=== PATIENT | male | born 1955 | race Caucasian/White ===

== ENCOUNTER 2019-04-22 08:33 | Emergency (ER) | payer OTHER ==
[2019-04-22 08:42] VITALS: RESP 18; TEMP 98.1
--- NOTE | 2019-04-22 08:43 | ED ---
General Adult HPI - General Chief complaint: Psychiatric Symptoms Stated complaint: Mental Health Time Seen by Provider: 04/22/19 08:42 Source: patient, RN notes reviewed Mode of arrival: ambulatory Limitations: no limitations - History of Present Illness Initial comments: 64-year-old male with a past medical history of atrial fibrillation, COPD, hyperlipidemia, hypertension presents to the emergency department for a chief complaint of suicidal thoughts. Patient states that he has had suicidal thoughts for about 3 weeks. States he has a history of depression and has been unemployed. States he stopped taking his antidepressants 3 weeks ago. States that about at that time he moved to [place] from [place] to try to find work but was unsuccessful. States he lost all his belongings because they were in his friend's car who got arrested and his items got confiscated. States that today he was again having suicidal thoughts and attempted to hang himself. States he put a rope around his neck and slid off the edge of the dog house. States his feet did hit the ground but there was some pressure on his neck from the rope. States he has a sore throat at this time from this. Patient has no other complaints at this time including shortness of breath, chest pain, abdominal pain, nausea or vomiting, headache, or visual changes. - Related Data Home Medications Medication Instructions Recorded Confirmed Aspirin EC [Ecotrin Low Dose] 81 mg PO DAILY 04/22/19 04/22/19 Lipitor (Unknown Dose) 1 tab PO DAILY 04/22/19 04/22/19 Lisinopril (Unknown Dose) 1 tab PO DAILY 04/22/19 04/22/19 Psych Meds (Unknown) 1 tab PO DAILY 04/22/19 04/22/19 Allergies Allergy/AdvReac Type Severity Reaction Status Date / Time Penicillins Allergy Anaphylaxis Verified 04/22/19 09:11 Review of Systems ROS Statement: Those systems with pertinent positive or pertinent negative responses have been documented in the HPI. ROS Other: All systems not noted in ROS Statement are negative. Past Medical History Past Medical History: Atrial Fibrillation, COPD, Hyperlipidemia, Hypertension History of Any Multi-Drug Resistant Organisms: None Reported Past Surgical History: Appendectomy, Tonsillectomy Past Psychological History: Depression Smoking Status: Current every day smoker Past Alcohol Use History: None Reported Past Drug Use History: None Reported General Exam Limitations: no limitations General appearance: alert, in no apparent distress Head exam: Present: atraumatic, normocephalic, normal inspection Eye exam: Present: normal appearance, PERRL, EOMI. Absent: scleral icterus, conjunctival injection, periorbital swelling ENT exam: Present: normal exam, normal oropharynx (oropharynx appears normal), mucous membranes moist Neck exam: Present: normal inspection, full ROM. Absent: tenderness, meningismus, lymphadenopathy, other (No ecchymosis present, no carotid bruits) Respiratory exam: Present: normal lung sounds bilaterally. Absent: respiratory distress, wheezes, rales, rhonchi, stridor Cardiovascular Exam: Present: regular rate, normal rhythm, normal heart sounds. Absent: systolic murmur, diastolic murmur, rubs, gallop, clicks GI/Abdominal exam: Present: soft, normal bowel sounds. Absent: distended, tenderness, guarding, rebound, rigid Neurological exam: Present: alert, oriented X3 Psychiatric exam: Present: depressed, flat affect Course Vital Signs 04/22/19 04/22/19 08:38 13:00 Temperature 98.1 F 98.1 F Pulse Rate 99 69 Respiratory 18 18 Rate Blood Pressure 169/93 153/85 O2 Sat by Pulse 98 99 Oximetry EKG Findings - EKG Comments: EKG Findings:: Normal sinus rhythm, ventricular rate 74, PA interval 146, QTC 457, no ST elevation or depression Medical Decision Making - Medical Decision Making 64-year-old male presents to the emergency department for a chief complaint of suicidal thoughts. Patient states he has been depressed because he has been unemployed for 3 weeks and recently moved to [place] to look for work. However this has been unsuccessful. Patient states he has been homeless for the past few days. Patient did state he tried to hang himself today with a rope from a dog house however his feet touched the ground. On exam there are no abrasions or bruising noted to the neck. Exam is unremarkable in general. Vitals are stable. Blood work was obtained which was generally negative however glucose is 268 with 3+ glucose in the urine. Recommended follow-up for fasting glucose. CT soft tissue neck with contrast was obtained due to report of hanging himself which showed no acute posttraumatic changes. Patient was evaluated by EPS. They contacted [facility] to also evaluate a patient. Apparently patient has been going around to multiple hospitals in requesting admission to psychiatric worse. They have a 50 page report explaining this. At this time they recommend discharge home with outpatient treatment. Patient was given bus passes to homeless halfway. Patient will follow-up with primary care and was given referral [facility]. He will return here for any worsening symptoms. - Lab Data Result diagrams: 04/22/19 09:30 04/22/19 09:30 Lab Results 04/22/19 04/22/19 04/22/19 Range/Units 09:30 09:30 09:30 WBC 5.8 (3.8-10.6) k/uL RBC 4.50 (4.30-5.90) m/uL Hgb 14.1 (13.0-17.5) gm/dL Hct 41.2 (39.0-53.0) % MCV 91.6 (80.0-100.0) fL MCH 31.3 (25.0-35.0) pg MCHC 34.2 (31.0-37.0) g/dL RDW 16.0 H (11.5-15.5) % Plt Count 242 (150-450) k/uL Neutrophils % 57 % Lymphocytes % 29 % Monocytes % 7 % Eosinophils % 5 % Basophils % 1 % Neutrophils # 3.3 (1.3-7.7) k/uL Lymphocytes # 1.7 (1.0-4.8) k/uL Monocytes # 0.4 (0-1.0) k/uL Eosinophils # 0.3 (0-0.7) k/uL Basophils # 0.1 (0-0.2) k/uL Poikilocytosis Slight Anisocytosis Slight Sodium 140 (137-145) mmol/L Potassium 4.5 (3.5-5.1) mmol/L Chloride 105 (98-107) mmol/L Carbon Dioxide 24 (22-30) mmol/L Anion Gap 11 mmol/L BUN 11 (9-20) mg/dL Creatinine 0.97 (0.66-1.25) mg/dL Est GFR (CKD-EPI)AfAm >90 (>60 ml/min/1.73 sqM) Est GFR (CKD-EPI)NonAf 82 (>60 ml/min/1.73 sqM) Glucose 268 H (74-99) mg/dL Calcium 9.5 (8.4-10.2) mg/dL Total Bilirubin 0.4 (0.2-1.3) mg/dL AST 34 (17-59) U/L ALT 61 (21-72) U/L Alkaline Phosphatase 87 (38-126) U/L Total Protein 7.7 (6.3-8.2) g/dL Albumin 4.5 (3.5-5.0) g/dL Urine Color Yellow Urine Appearance Clear (Clear) Urine pH 5.5 (5.0-8.0) Ur Specific [place] 1.014 (1.001-1.035) Urine Protein Negative (Negative) Urine Glucose (UA) 3+ H (Negative) Urine Ketones Negative (Negative) Urine Blood Negative (Negative) Urine Nitrite Negative (Negative) Urine Bilirubin Negative (Negative) Urine Urobilinogen <2.0 (<2.0) mg/dL Ur Leukocyte Esterase Negative (Negative) Urine Opiates Screen Not Detected (NotDetected) Ur Oxycodone Screen Not Detected (NotDetected) Urine Methadone Screen Not Detected (NotDetected) Ur Propoxyphene Screen Not Detected (NotDetected) Ur Barbiturates Screen Not Detected (NotDetected) U Tricyclic Antidepress Not Detected (NotDetected) Ur Phencyclidine Scrn Not Detected (NotDetected) Ur Amphetamines Screen Not Detected (NotDetected) U Methamphetamines Scrn Not Detected (NotDetected) U Benzodiazepines Scrn Not Detected (NotDetected) Urine Cocaine Screen Not Detected (NotDetected) U Marijuana (THC) Screen Not Detected (NotDetected) Disposition Clinical Impression: Adjustment reaction, Hyperglycemia Disposition: HOME SELF-CARE Condition: Good Instructions (If sedation given, give patient instructions): Stress (ED), Depression (ED) Additional Instructions: Please follow up with primary care in 1-2 days to discuss high blood sugar. Please follow-up with primary care as well for depression. Return to the emergency department if you have any worsening symptoms. Is patient prescribed a controlled substance at d/c from ED?: No Referrals: Cole Cade MD [REFERRING] - 1[facility] days [facility] - 1-2 days Time of Disposition: 16:01
[2019-04-22] MEDS ORDERED: SODIUM CHLORIDE 0.9% 500 ML 500 ML IV STA (09:07)
[2019-04-22 09:48] LABS: Appearance,Urine Clear (Clear); Bilirubin,Urine Negative (Negative); Blood,Urine Negative (Negative); Color,Urine Yellow; Glucose,Urine (UA) 3+ (Negative); Ketones,Urine Negative (Negative); Leukocyte Esterase,Urine Negative (Negative); Nitrite,Urine Negative (Negative); PH, Urine 5.5 (5.0-8.0); Protein,Urine Negative (Negative); Specific Gravity,Urine 1.014 (1.001-1.035); Urobilinogen,Urine <2.0 mg/dL (<2.0)
[2019-04-22 09:52] LABS: Anisocytosis Slight; Basophils # (A) 0.1 k/uL (0-0.2); Basophils % (A) 1 %; Eosinophils # (A) 0.3 k/uL (0-0.7); Eosinophils % (A) 5 %; HCT 41.2 % (39.0-53.0); HGB 14.1 gm/dL (13.0-17.5); Lymphocytes # (A) 1.7 k/uL (1.0-4.8); Lymphocytes % (A) 29 %; MCH 31.3 pg (25.0-35.0); MCHC 34.2 g/dL (31.0-37.0); MCV 91.6 fL (80.0-100.0); Mean Platelet Volume 7.8; Monocytes # (A) 0.4 k/uL (0-1.0); Monocytes % (A) 7 %; Neutrophils # (A) 3.3 k/uL (1.3-7.7); Neutrophils % (A) 57 %; Platelet Count 242 k/uL (150-450); Poikilocytosis Slight; WBC 5.8 k/uL (3.8-10.6)
[2019-04-22 09:57] LABS: ALT 61 U/L (21-72); AST 34 U/L (17-59); African American GFR (CKD) >90 (>60 ml/min/1.73 sqM); Albumin 4.5 g/dL (3.5-5.0); Alkaline Phosphatase 87 U/L (38-126); Anion Gap 11 mmol/L; Blood Urea Nitrogen 11 mg/dL (9-20); Calcium 9.5 mg/dL (8.4-10.2); Carbon Dioxide 24 mmol/L (22-30); Chloride 105 mmol/L (98-107); Glucose 268 mg/dL (74-99); Potassium 4.5 mmol/L (3.5-5.1); Sodium 140 mmol/L (137-145); Total Bilirubin 0.4 mg/dL (0.2-1.3); Total Protein 7.7 g/dL (6.3-8.2)
[2019-04-22 10:18] LABS: Amphetamine Screen,Urine Not Detected (NotDetected); Barbiturate Screen,Urine Not Detected (NotDetected); Benzodiazepines Screen,Urine Not Detected (NotDetected); Cocaine Screen,Urine Not Detected (NotDetected); Methadone Screen, Urine Not Detected (NotDetected); Opiate Screen,Urine Not Detected (NotDetected); Oxycodone Screen, Urine Not Detected (NotDetected); Phencyclidine Screen,Urine Not Detected (NotDetected); Tricyclic Antidepressant,Urine Not Detected (NotDetected); Urn Cannabinoid Scrn Not Detected (NotDetected)
--- NOTE | 2019-04-22 10:38 | CT ---
EXAMINATION TYPE: CT soft tissue neck w con DATE OF EXAM: 04/22/2019 COMPARISON: None HISTORY: Neck pain CT DLP: 327.3 mGycm CONTRAST: Patient injected with 100 mL of Isovue 300. TECHNIQUE: Axial images at 3 mm thick sections. Reconstructed images in the coronal plane and sagitt al plane are reviewed. FINDINGS: Limited CT sections are obtained the lung apices. The lung apices appear clear. There is m ucosal thickening within the left sphenoid sinus. CT neck: The torus tubarius and fossa of Rosenmuller are normal. [employer]orer spaces are normal. Para nasal sinuses and mastoid air cells are clear. Parotid glands appear normal and symmetrical. Submandibular glands, are normal. Parapharyngeal spac es are normal. No suspicious adenopathy is evident. Small shoddy lymph nodes are within the bilatera l neck. The hypopharynx appears within normal limits. Vocal cord level appear symmetrical. Thyroid as visualized is normal. Hyoid bone is intact. Hypopharynx and subglottic airway appear normal. Carotid arteries appear normal . Vertebral arteries are unremarkable. No acute osseous abnormality is evident. There are some uncovertebral joint hypertrophy in the lower cervical spine contributing to foraminal narrowing. IMPRESSIONS: 1. No acute posttraumatic changes. 2. Few small scattered bilateral shotty lymph nodes. Enlarged suspicious adenopathy is not evident.
[2019-04-22 16:09] VITALS: BP 151/80; PULSE 68
== END 2019-04-22 16:16 | disposition home or self-care (01) ==
LOC: EC 08:33
DX: F43.21 Adjustment disorder with depressed mood (principal); R73.9 Hyperglycemia, unspecified; R45.851 Suicidal ideations; Z56.0 Unemployment, unspecified; Z59.0 Homelessness; E78.5 Hyperlipidemia, unspecified; I10 Essential (primary) hypertension; F17.200 Nicotine dependence, unspecified, uncomplicated; Z88.0 Allergy status to penicillin; Z79.82 Long term (current) use of aspirin; Z79.899 Other long term (current) drug therapy
CPT/HCPCS: 82075; 36415; 93005; 80053; 85025; 81003; 80306; 70491; 99285; 96360; Q9967

== ENCOUNTER 2019-05-09 21:03 | Inpatient (IN) | payer OTHER ==
[2019-05-09] MEDS ORDERED: SODIUM CHLORIDE 0.9% 1,000 ML IV STA (21:53)
--- NOTE | 2019-05-09 22:02 | ED ---
General Adult HPI - General Chief complaint: Psychiatric Symptoms Stated complaint: Mental Health Time Seen by Provider: 05/09/19 21:39 Source: patient Mode of arrival: ambulatory Limitations: no limitations - History of Present Illness Initial comments: Patient is 64-year-old male with history of suicidal ideations presenting to the emergency department with a chief complaint of a suicide attempt. Patient reports he was at the [facility] when he took a bottle of metformin. Patient reports there was approximately 30 tablets. Patient reports he developed nausea and vomited approximately 30 minutes after the incident. Patient reports he also drank about 4 cans of beer. Patient reports he got scared as he was walking and he had a light pole. Patient is also complaining of right-sided pain. Patient reports he became more concerned and called a taxi to bring him to the ED. Currently patient reports a right-sided headache near the contusion site. Patient also reports diaphoresis but denies any abdominal pain. - Related Data Home Medications Medication Instructions Recorded Confirmed No Known Home Medications 05/09/19 05/09/19 Allergies Allergy/AdvReac Type Severity Reaction Status Date / Time Penicillins Allergy Anaphylaxis Verified 05/09/19 22:21 Review of Systems ROS Statement: Those systems with pertinent positive or pertinent negative responses have been documented in the HPI. ROS Other: All systems not noted in ROS Statement are negative. Past Medical History Past Medical History: Atrial Fibrillation, COPD, Hyperlipidemia, Hypertension History of Any Multi-Drug Resistant Organisms: None Reported Past Surgical History: Appendectomy, Tonsillectomy Past Psychological History: Depression Smoking Status: Current every day smoker Past Alcohol Use History: None Reported Past Drug Use History: None Reported General Exam Limitations: no limitations General appearance: alert, in no apparent distress Head exam: Present: atraumatic, normocephalic, normal inspection Eye exam: Present: normal appearance, PERRL, EOMI Pupils: Present: normal accommodation, other (Pupils equal) ENT exam: Present: normal exam, mucous membranes moist, normal external ear exam Neck exam: Present: normal inspection, full ROM Respiratory exam: Present: normal lung sounds bilaterally Cardiovascular Exam: Present: normal rhythm, tachycardia, normal heart sounds GI/Abdominal exam: Present: soft. Absent: tenderness Extremities exam: Present: normal inspection, full ROM Back exam: Present: normal inspection, full ROM Neurological exam: Present: alert, oriented X3 Psychiatric exam: Present: normal affect, depressed, anxious, suicidal ideation Skin exam: Present: warm, intact, normal color Course Vital Signs 05/09/19 05/09/19 05/09/19 21:29 22:13 23:06 Temperature 97.9 F Pulse Rate 118 H 97 88 Respiratory 20 18 18 Rate Blood Pressure 136/82 138/90 153/83 O2 Sat by Pulse 97 98 96 Oximetry 05/10/19 00:31 Temperature 98.3 F Pulse Rate 89 Respiratory 18 Rate Blood Pressure 116/74 O2 Sat by Pulse 96 Oximetry EKG Findings - EKG Comments: EKG Findings:: Normal sinus rhythm. Matriculate rate 96, MA interval 156, QRS duration 94, QT/QTC 360/454, p-r-t axes 42 17 -4 Medical Decision Making - Medical Decision Making Patient is 64-year-old male presenting to emergency Department with a chief complaint of suicidal attempt. Patient reports he took a bottle of metformin. Patient reports there was approximately 30 pills in the bottle. Patient states that he vomited after the incident and also tripped and hit a lamp post with his head. Physical examination his pupils are round reactive and equal. CBC, CMP, salicylates, acetaminophen, lactic and coags were obtained immediately. Patient was given a liter of fluid. Initial concern is for metformin induced lactic acidosis. Lactic results indicate 2.1. CT of the brain and C-spine is negative for acute fractures, dislocations, hemorrhage or midline shift. Repeat lactate is 1.4. Patient is cleared medically and will be assessed by EPS. Patient will be admitted for further medical evaluation. - Lab Data Result diagrams: 05/09/19 18:10 05/09/19 18:10 Lab Results 05/09/19 05/09/19 05/09/19 Range/Units 18:10 18:10 18:10 WBC 13.4 H (3.8-10.6) k/uL RBC 4.82 (4.30-5.90) m/uL Hgb 15.1 (13.0-17.5) gm/dL Hct 42.7 (39.0-53.0) % MCV 88.6 (80.0-100.0) fL MCH 31.2 (25.0-35.0) pg MCHC 35.3 (31.0-37.0) g/dL RDW 15.7 H (11.5-15.5) % Plt Count 203 (150-450) k/uL Neutrophils % 73 % Lymphocytes % 17 % Monocytes % 5 % Eosinophils % 2 % Basophils % 1 % Neutrophils # 9.8 H (1.3-7.7) k/uL Lymphocytes # 2.3 (1.0-4.8) k/uL Monocytes # 0.7 (0-1.0) k/uL Eosinophils # 0.3 (0-0.7) k/uL Basophils # 0.1 (0-0.2) k/uL PT (9.0-12.0) sec INR (<1.2) APTT (22.0-30.0) sec Sodium 141 (137-145) mmol/L Potassium 4.7 (3.5-5.1) mmol/L Chloride 104 (98-107) mmol/L Carbon Dioxide 23 (22-30) mmol/L Anion Gap 14 mmol/L BUN 14 (9-20) mg/dL Creatinine 0.89 (0.66-1.25) mg/dL Est GFR (CKD-EPI)AfAm >90 (>60 ml/min/1.73 sqM) Est GFR (CKD-EPI)NonAf >90 (>60 ml/min/1.73 sqM) Glucose 126 H (74-99) mg/dL POC Glucose (mg/dL) (75-99) mg/dL POC Glu Sales Clerk Food ID Lactic Ac Sepsis Rflx Plasma Lactic Acid [place] 2.1 H* (0.7-2.0) mmol/L Calcium 9.9 (8.4-10.2) mg/dL Phosphorus 4.9 H (2.5-4.5) mg/dL Magnesium 2.0 (1.6-2.3) mg/dL Total Bilirubin 0.4 (0.2-1.3) mg/dL AST 33 (17-59) U/L ALT 68 (21-72) U/L Alkaline Phosphatase 87 (38-126) U/L Total Protein 8.2 (6.3-8.2) g/dL Albumin 4.9 (3.5-5.0) g/dL Urine Color Urine Appearance (Clear) Urine pH (5.0-8.0) Ur Specific [place] (1.001-1.035) Urine Protein (Negative) Urine Glucose (UA) (Negative) Urine Ketones (Negative) Urine Blood (Negative) Urine Nitrite (Negative) Urine Bilirubin (Negative) Urine Urobilinogen (<2.0) mg/dL Ur Leukocyte Esterase (Negative) Salicylates <1.0 mg/dL Urine Opiates Screen (NotDetected) Ur Oxycodone Screen (NotDetected) Urine Methadone Screen (NotDetected) Ur Propoxyphene Screen (NotDetected) Acetaminophen <10.0 ug/mL Ur Barbiturates Screen (NotDetected) U Tricyclic Antidepress (NotDetected) Ur Phencyclidine Scrn (NotDetected) Ur Amphetamines Screen (NotDetected) U Methamphetamines Scrn (NotDetected) U Benzodiazepines Scrn (NotDetected) Urine Cocaine Screen (NotDetected) U Marijuana (THC) Screen (NotDetected) Serum Alcohol 63 mg/dL 05/09/19 05/09/19 05/09/19 Range/Units 18:10 18:10 22:42 WBC (3.8-10.6) k/uL RBC (4.30-5.90) m/uL Hgb (13.0-17.5) gm/dL Hct (39.0-53.0) % MCV (80.0-100.0) fL MCH (25.0-35.0) pg MCHC (31.0-37.0) g/dL RDW (11.5-15.5) % Plt Count (150-450) k/uL Neutrophils % % Lymphocytes % % Monocytes % % Eosinophils % % Basophils % % Neutrophils # (1.3-7.7) k/uL Lymphocytes # (1.0-4.8) k/uL Monocytes # (0-1.0) k/uL Eosinophils # (0-0.7) k/uL Basophils # (0-0.2) k/uL PT 10.2 (9.0-12.0) sec INR 0.9 (<1.2) APTT 27.2 (22.0-30.0) sec Sodium (137-145) mmol/L Potassium (3.5-5.1) mmol/L Chloride (98-107) mmol/L Carbon Dioxide (22-30) mmol/L Anion Gap mmol/L BUN (9-20) mg/dL Creatinine (0.66-1.25) mg/dL Est GFR (CKD-EPI)AfAm (>60 ml/min/1.73 sqM) Est GFR (CKD-EPI)NonAf (>60 ml/min/1.73 sqM) Glucose (74-99) mg/dL POC Glucose (mg/dL) (75-99) mg/dL POC Glu Sales Clerk Food ID Lactic Ac Sepsis Rflx Y Plasma Lactic Acid [place] (0.7-2.0) mmol/L Calcium (8.4-10.2) mg/dL Phosphorus (2.5-4.5) mg/dL Magnesium (1.6-2.3) mg/dL Total Bilirubin (0.2-1.3) mg/dL AST (17-59) U/L ALT (21-72) U/L Alkaline Phosphatase (38-126) U/L Total Protein (6.3-8.2) g/dL Albumin (3.5-5.0) g/dL Urine Color Colorless Urine Appearance Clear (Clear) Urine pH 5.0 (5.0-8.0) Ur Specific [place] 1.003 (1.001-1.035) Urine Protein Negative (Negative) Urine Glucose (UA) Negative (Negative) Urine Ketones Negative (Negative) Urine Blood Negative (Negative) Urine Nitrite Negative (Negative) Urine Bilirubin Negative (Negative) Urine Urobilinogen <2.0 (<2.0) mg/dL Ur Leukocyte Esterase Negative (Negative) Salicylates mg/dL Urine Opiates Screen Not Detected (NotDetected) Ur Oxycodone Screen Not Detected (NotDetected) Urine Methadone Screen Not Detected (NotDetected) Ur Propoxyphene Screen Not Detected (NotDetected) Acetaminophen ug/mL Ur Barbiturates Screen Not Detected (NotDetected) U Tricyclic Antidepress Not Detected (NotDetected) Ur Phencyclidine Scrn Not Detected (NotDetected) Ur Amphetamines Screen Not Detected (NotDetected) U Methamphetamines Scrn Not Detected (NotDetected) U Benzodiazepines Scrn Not Detected (NotDetected) Urine Cocaine Screen Not Detected (NotDetected) U Marijuana (THC) Screen Not Detected (NotDetected) Serum Alcohol mg/dL 05/09/19 05/10/1919 Range/Units 23:05 00:27 02:03 WBC (3.8-10.6) k/uL RBC (4.30-5.90) m/uL Hgb (13.0-17.5) gm/dL Hct (39.0-53.0) % MCV (80.0-100.0) fL MCH (25.0-35.0) pg MCHC (31.0-37.0) g/dL RDW (11.5-15.5) % Plt Count (150-450) k/uL Neutrophils % % Lymphocytes % % Monocytes % % Eosinophils % % Basophils % % Neutrophils # (1.3-7.7) k/uL Lymphocytes # (1.0-4.8) k/uL Monocytes # (0-1.0) k/uL Eosinophils # (0-0.7) k/uL Basophils # (0-0.2) k/uL PT (9.0-12.0) sec INR (<1.2) APTT (22.0-30.0) sec Sodium (137-145) mmol/L Potassium (3.5-5.1) mmol/L Chloride (98-107) mmol/L Carbon Dioxide (22-30) mmol/L Anion Gap mmol/L BUN (9-20) mg/dL Creatinine (0.66-1.25) mg/dL Est GFR (CKD-EPI)AfAm (>60 ml/min/1.73 sqM) Est GFR (CKD-EPI)NonAf (>60 ml/min/1.73 sqM) Glucose (74-99) mg/dL POC Glucose (mg/dL) 148 H 150 H (75-99) mg/dL POC Glu Sales Clerk Food ID Syeda Hadley Lactic Ac Sepsis Rflx Plasma Lactic Acid [place] 1.4 (0.7-2.0) mmol/L Calcium (8.4-10.2) mg/dL Phosphorus (2.5-4.5) mg/dL Magnesium (1.6-2.3) mg/dL Total Bilirubin (0.2-1.3) mg/dL AST (17-59) U/L ALT (21-72) U/L Alkaline Phosphatase (38-126) U/L Total Protein (6.3-8.2) g/dL Albumin (3.5-5.0) g/dL Urine Color Urine Appearance (Clear) Urine pH (5.0-8.0) Ur Specific [place] (1.001-1.035) Urine Protein (Negative) Urine Glucose (UA) (Negative) Urine Ketones (Negative) Urine Blood (Negative) Urine Nitrite (Negative) Urine Bilirubin (Negative) Urine Urobilinogen (<2.0) mg/dL Ur Leukocyte Esterase (Negative) Salicylates mg/dL Urine Opiates Screen (NotDetected) Ur Oxycodone Screen (NotDetected) Urine Methadone Screen (NotDetected) Ur Propoxyphene Screen (NotDetected) Acetaminophen ug/mL Ur Barbiturates Screen (NotDetected) U Tricyclic Antidepress (NotDetected) Ur Phencyclidine Scrn (NotDetected) Ur Amphetamines Screen (NotDetected) U Methamphetamines Scrn (NotDetected) U Benzodiazepines Scrn (NotDetected) Urine Cocaine Screen (NotDetected) U Marijuana (THC) Screen (NotDetected) Serum Alcohol mg/dL Disposition Clinical Impression: Depression, Suicidal ideation Disposition: ADMITTED IP TO THIS HOSP Condition: Stable Instructions (If sedation given, give patient instructions): Depression (DC) Additional Instructions: Patient will be admitted Is patient prescribed a controlled substance at d/c from ED?: No Referrals: None,Stated [Primary Care Provider] - 1-2 days Time of Disposition: 02:38
[2019-05-09 22:24] LABS: Appearance,Urine Clear (Clear); Basophils # (A) 0.1 k/uL (0-0.2); Basophils % (A) 1 %; Bilirubin,Urine Negative (Negative); Blood,Urine Negative (Negative); Color,Urine Colorless; Eosinophils # (A) 0.3 k/uL (0-0.7); Eosinophils % (A) 2 %; Glucose,Urine (UA) Negative (Negative); HCT 42.7 % (39.0-53.0); HGB 15.1 gm/dL (13.0-17.5); Ketones,Urine Negative (Negative); Leukocyte Esterase,Urine Negative (Negative); Lymphocytes # (A) 2.3 k/uL (1.0-4.8); Lymphocytes % (A) 17 %; MCH 31.2 pg (25.0-35.0); MCHC 35.3 g/dL (31.0-37.0); MCV 88.6 fL (80.0-100.0); Mean Platelet Volume 7.5; Monocytes # (A) 0.7 k/uL (0-1.0); Monocytes % (A) 5 %; Neutrophils # (A) 9.8 k/uL (1.3-7.7); Neutrophils % (A) 73 %; Nitrite,Urine Negative (Negative); Platelet Count 203 k/uL (150-450); Protein,Urine Negative (Negative); RBC 4.82 m/uL (4.30-5.90); RDW 15.7 % (11.5-15.5); Specific Gravity,Urine 1.003 (1.001-1.035); Urobilinogen,Urine <2.0 mg/dL (<2.0); WBC 13.4 k/uL (3.8-10.6)
[2019-05-09 22:32] LABS: ALT 68 U/L (21-72); AST 33 U/L (17-59); Acetaminophen <10.0 ug/mL; African American GFR (CKD) >90 (>60 ml/min/1.73 sqM); Albumin 4.9 g/dL (3.5-5.0); Alcohol 63 mg/dL; Alkaline Phosphatase 87 U/L (38-126); Anion Gap 14 mmol/L; Blood Urea Nitrogen 14 mg/dL (9-20); Calcium 9.9 mg/dL (8.4-10.2); Carbon Dioxide 23 mmol/L (22-30); Chloride 104 mmol/L (98-107); Glucose 126 mg/dL (74-99); Phosphorus 4.9 mg/dL (2.5-4.5); Potassium 4.7 mmol/L (3.5-5.1); Salicylate <1.0 mg/dL; Sodium 141 mmol/L (137-145); Total Bilirubin 0.4 mg/dL (0.2-1.3); Total Protein 8.2 g/dL (6.3-8.2)
[2019-05-09 22:33] LABS: Amphetamine Screen,Urine Not Detected (NotDetected); Barbiturate Screen,Urine Not Detected (NotDetected); Benzodiazepines Screen,Urine Not Detected (NotDetected); Cocaine Screen,Urine Not Detected (NotDetected); Methadone Screen, Urine Not Detected (NotDetected); Opiate Screen,Urine Not Detected (NotDetected); Oxycodone Screen, Urine Not Detected (NotDetected); Phencyclidine Screen,Urine Not Detected (NotDetected); Tricyclic Antidepressant,Urine Not Detected (NotDetected); Urn Cannabinoid Scrn Not Detected (NotDetected)
[2019-05-09 22:34] LABS: INR 0.9 (<1.2); Partial Thromboplastin Time 27.2 sec (22.0-30.0); Prothrombin Time 10.2 sec (9.0-12.0)
[2019-05-09 23:15] LABS: Glucose,Whole Blood 148 mg/dL (75-99)
--- NOTE | 2019-05-09 23:21 | CT ---
EXAM: CT Head Without Intravenous Contrast CLINICAL HISTORY: trauma to head TECHNIQUE: Axial computed tomography images of the head/brain without intravenous contrast. CTDI is 0.085, 0.085, 45.2, 16.4 mGy and DLP is 1484.3 mGy-cm. This CT exam was performed using one or more of the following dose reduction techniques: automated exposure control, adjustment of the mA and/or kV according to patient size, and/or use of iterative reconstruction technique. COMPARISON: No relevant prior studies available. FINDINGS: Brain: No acute intracranial hemorrhage, large hypodensity, or significant mass effect. Nonspecific areas of hypoattenuation in the periventricular white matter likely represent the sequela of chronic small vessel ischemic disease. Ventricles: Unremarkable. No ventriculomegaly. Bones/joints: Unremarkable. No acute fracture. Soft tissues: Unremarkable. Sinuses: Unremarkable. Mastoid air cells: Unremarkable. IMPRESSION: No acute intracranial hemorrhage or calvarial fracture. EXAM: CT Cervical Spine Without Intravenous Contrast CLINICAL HISTORY: trauma to head TECHNIQUE: Axial computed tomography images of the cervical spine without intravenous contrast. CTDI is 0.085, 0.085, 45.2, 16.4 mGy and DLP is 1484.3 mGy-cm. This CT exam was performed using one or more of the following dose reduction techniques: automated exposure control, adjustment of the mA and/or kV according to patient size, and/or use of iterative reconstruction technique. COMPARISON: No relevant prior studies available. FINDINGS: Vertebrae: No acute fracture or malalignment. Straightening of the normal cervical lordosis. Discs/spinal canal/neural foramina: Degenerative changes. No significant osseous spinal stenosis. Soft tissues: Unremarkable. Lung apices: Right pleural calcification. IMPRESSION: No acute fracture or malalignment.
[2019-05-10 00:29] LABS: Glucose,Whole Blood 150 mg/dL (75-99)
[2019-05-10 04:01] LABS: Glucose,Whole Blood 199 mg/dL (75-99)
[2019-05-10] MEDS ORDERED: NAPROXEN 250 MG TAB PO STA (13:36)
[2019-05-10 15:10] LABS: Glucose,Whole Blood 205 mg/dL (75-99)
[2019-05-10 18:24] VITALS: BMI 28.8
[2019-05-10] MEDS ORDERED: ZIPRASIDONE 20 MG VIAL IM PRN (19:24)
[2019-05-10] MEDS ORDERED: MAGNESIUM HYDROXIDE 2,400 MG/10 ML CUP PO PRN (19:24)
[2019-05-10] MEDS ORDERED: MAG HYDROX/AL HYDROX/SIMETH 30 ML CUP PO PRN (19:24)
[2019-05-10] MEDS ORDERED: LORazepam 2 MG/ML INJ IM PRN (19:26)
[2019-05-10] MEDS: ACETAMINOPHEN TAB 325 MG TAB PO PRN (20:16)
[2019-05-10 20:22] LABS: Glucose,Whole Blood 164 mg/dL (75-99)
[2019-05-10 20:54] LABS: VBG PH 7.32 (7.31-7.41)
[2019-05-10 21:01] LABS: Calcium 9.7 mg/dL (8.4-10.2); Potassium 4.8 mmol/L (3.5-5.1)
--- NOTE | 2019-05-10 21:41 | P.HPIM ---
History of Present Illness H&P Date: 05/10/19 The patient is a 64 yo M with a PMH of atrial fibrillation, HTN, HLD, and DM presented to the ED after a suicide attempt. Patient notes that he has been feeling poorly about his life and tried to commit suicide yesterday by ingesting a bottle full of metformin (~ 30 pills). The patient notes that he developed abdominal pain and nausea and had an episode of vomiting in which he visualized "most of the pills" that he had ingested. He then stumbled and hit a pole, hitting his head. He denied losing consciousness. He was then brought in to the ED. Patient was seen in the MHU. At time of the interview, he endorsed a mild occasional epigastric discomfort along with some nausea along with occasional blurred vision since yesterday, lasting a few seconds to minutes at a time, and then resolving spontaneously. He denied any additional complaints. Denied chest pain, fever, chills, cough, vomiting, diarrhea, headaches, or dizziness. He underwent an extensive evaluation in the ED w/ head/C-spine CT unremarkable and EKG showing normal sinus rhythm at 96 bpm. Laboratory evaluation revealed lactic acid 2.1, BUN 14, Cr 0.89, WBC count 13.4, Hgb 15.1, and platelets 203. Urine toxicology was negative and salicylate level was undetected. Review of Systems Pertinent positives and negatives as discussed in HPI, a complete review of systems was performed and all other systems are negative. Past Medical History Past Medical History: Atrial Fibrillation, COPD, Hyperlipidemia, Hypertension History of Any Multi-Drug Resistant Organisms: None Reported Past Surgical History: Appendectomy, Tonsillectomy Past Psychological History: Depression Smoking Status: Current every day smoker Past Alcohol Use History: None Reported Past Drug Use History: None Reported Medications and Allergies Home Medications Medication Instructions Recorded Confirmed Type No Known Home Medications 05/09/19 05/09/19 History Allergies Allergy/AdvReac Type Severity Reaction Status Date / Time Penicillins Allergy Anaphylaxis Verified 05/09/19 22:21 Physical Exam Vitals: Vital Signs Temp Pulse Pulse Resp BP BP Pulse Ox 05/10/19 18:21 97.5 F L 86 18 144/79 05/10/19 18:08 97.5 F L 86 18 144/79 94 L 05/10/19 13:19 75 16 145/88 97 05/10/19 03:01 107 H 18 127/67 95 05/10/19 00:31 98.3 F 89 18 116/74 96 05/09/19 23:06 88 18 153/83 96 05/09/19 22:13 97 18 138/90 98 05/09/19 21:29 97.9 F 118 H 20 136/82 97 Intake and Output 05/10/19 05/10/19 05/10/19 06:59 14:59 22:59 Other: Weight 88.5 kg General: non toxic, no distress, appears at stated age, normal weight Derm: no unusual rashes/lesions no unusual ecchymoses, warm, dry Head: atraumatic, normocephalic, symmetric Eyes: EOMI, no lid lag, anicteric sclera, pupils equal round reactive to light ENT: Nose and ears atraumatic, no thrush, no pharyngeal erythema Neck: No thyromegaly, no cervical lymphadenopathy, trachea midline, supple Mouth: no lip lesion, mucus membranes moist Cardiovascular: S1S2 reg, no murmur, positive posterior tibial pulse bilateral, no edema, capillary refill less than 2 seconds Lungs: CTA bilateral, no rhonchi, no rales , no accessory muscle use Abdominal: soft, nontender to palpation, no guarding, no appreciable organomegaly, normal bowel sounds Ext: no gross muscle atrophy, muscle strength 5 out of 5 in all 4 extremities grossly, no contractures, Neuro: CN II-XI grossly intact, light touch intact all 4 extremities, finger to nose within normal limits, Psych: Alert, oriented, appropriate affect Results CBC & Chem 7: 05/09/19 18:10 05/10/19 20:40 Labs: Abnormal Lab Results - Last 24 Hours (Table) 05/09/19 05/09/19 05/09/19 Range/Units 18:10 18:10 18:10 WBC 13.4 H (3.8-10.6) k/uL RDW 15.7 H (11.5-15.5) % Neutrophils # 9.8 H (1.3-7.7) k/uL Glucose 126 H (74-99) mg/dL POC Glucose (mg/dL) (75-99) mg/dL Plasma Lactic Acid Seymour 2.1 H* (0.7-2.0) mmol/L Phosphorus 4.9 H (2.5-4.5) mg/dL 05/09/19 05/10/19 05/10/19 Range/Units 23:05 00:27 03:58 WBC (3.8-10.6) k/uL RDW (11.5-15.5) % Neutrophils # (1.3-7.7) k/uL Glucose (74-99) mg/dL POC Glucose (mg/dL) 148 H 150 H 199 H (75-99) mg/dL Plasma Lactic Acid Seymour (0.7-2.0) mmol/L Phosphorus (2.5-4.5) mg/dL 05/10/19 05/10/19 Range/Units 15:07 20:21 WBC (3.8-10.6) k/uL RDW (11.5-15.5) % Neutrophils # (1.3-7.7) k/uL Glucose (74-99) mg/dL POC Glucose (mg/dL) 205 H 164 H (75-99) mg/dL Plasma Lactic Acid Seymour (0.7-2.0) mmol/L Phosphorus (2.5-4.5) mg/dL Assessment and Plan Plan: Suicidal ideation -As per psychiatry Metformin overdose -Lactate wnl -Creatinine slightly increased from prior -Will continue to monitor BMP daily for now -Continue to check FS ACHS and will add Insulin sliding scale for now -F/u A1C Occasional Blurred vision -Unclear as to etiology -Monitor for now Chronic conditions:Afib, HTN, HLD -Patient doesn't recall the names of any of his medications and states that he wasn't taking them. Will confirm with his pharmacy and resume as warranted. Thank you for allowing us to participate in the care of this patient. We will follow peripherally. Do not hesitate to contact us with questions. Someone can be reached from the [facility] hospitalist group at all hours of the day at [phone].
[2019-05-11] MEDS: amLODIPine 10 MG TAB PO SCH ×2 (02:16→08:00)
[2019-05-11 07:42] LABS: Glucose,Whole Blood 191 mg/dL (75-99)
[2019-05-11] MEDS: NICOTINE 14MG/24HR PATCH TRANSDERM SCH (08:00)
[2019-05-11] MEDS: INSULIN ASPART (NovoLOG) 100 UNIT/ML VIAL SQ SCH ×4 (08:00→20:17)
[2019-05-11] MEDS: ACETAMINOPHEN TAB 325 MG TAB PO PRN (10:28)
--- NOTE | 2019-05-11 11:24 | P.HP ---
Psychiatric H&P - . History & Physical: Allergies Allergy/AdvReac Type Severity Reaction Status Date / Time Penicillins Allergy Anaphylaxis Verified 05/09/19 22:21 Vital Signs Temp 97.5 F L 05/11/19 06:23 Pulse 67 05/11/19 06:23 Resp 16 05/11/19 06:23 BP 122/68 05/11/19 06:23 Pulse Ox 94 L 05/10/19 18:08 Intake & Output 05/10/19 05/11/19 05/11/19 18:59 06:59 18:59 Weight 88.5 kg Laboratory Last Values WBC 13.4 k/uL (3.8-10.6) H 05/09/19 18:10 RBC 4.82 m/uL (4.30-5.90) 05/09/19 18:10 Hgb 15.1 gm/dL (13.0-17.5) 05/09/19 18:10 Hct 42.7 % (39.0-53.0) 05/09/19 18:10 MCV 88.6 fL (80.0-100.0) 05/09/19 18:10 MCH 31.2 pg (25.0-35.0) 05/09/19 18:10 MCHC 35.3 g/dL (31.0-37.0) 05/09/19 18:10 RDW 15.7 % (11.5-15.5) H 05/09/19 18:10 Plt Count 203 k/uL (150-450) 05/09/19 18:10 Neutrophils % 73 % 05/09/19 18:10 Lymphocytes % 17 % 05/09/19 18:10 Monocytes % 5 % 05/09/19 18:10 Eosinophils % 2 % 05/09/19 18:10 Basophils % 1 % 05/09/19 18:10 Neutrophils # 9.8 k/uL (1.3-7.7) H 05/09/19 18:10 Lymphocytes # 2.3 k/uL (1.0-4.8) 05/09/19 18:10 Monocytes # 0.7 k/uL (0-1.0) 05/09/19 18:10 Eosinophils # 0.3 k/uL (0-0.7) 05/09/19 18:10 Basophils # 0.1 k/uL (0-0.2) 05/09/19 18:10 PT 10.2 sec (9.0-12.0) 05/09/19 18:10 INR 0.9 (<1.2) 05/09/19 18:10 APTT 27.2 sec (22.0-30.0) 05/09/19 18:10 VBG pH 7.32 (7.31-7.41) 05/10/19 20:40 VBG pCO2 55 mmHg (37-51) H 05/10/19 20:40 VBG HCO3 28 mmol/L (24-28) 05/10/19 20:40 Sodium 139 mmol/L (137-145) 05/10/19 20:40 Potassium 4.8 mmol/L (3.5-5.1) 05/10/19 20:40 Chloride 103 mmol/L (98-107) 05/10/19 20:40 Carbon Dioxide 28 mmol/L (22-30) 05/10/19 20:40 Anion Gap 8 mmol/L 05/10/19 20:40 BUN 19 mg/dL (9-20) 05/10/19 20:40 Creatinine 1.10 mg/dL (0.66-1.25) 05/10/19 20:40 Est GFR (CKD-EPI)AfAm 81 (>60 ml/min/1.73 sqM) 05/10/19 20:40 Est GFR (CKD-EPI)NonAf 70 (>60 ml/min/1.73 sqM) 05/10/19 20:40 Glucose 147 mg/dL (74-99) H 05/10/19 20:40 POC Glucose (mg/dL) 191 mg/dL (75-99) H 05/11/19 07:39 POC Glu Aeronautics Teacher ID Rina Muñoz 05/11/19 07:39 Lactic Ac Sepsis Rflx Y 05/09/19 22:42 Plasma Lactic Acid Seymour 1.4 mmol/L (0.7-2.0) 05/10/19 20:40 Calcium 9.7 mg/dL (8.4-10.2) 05/10/19 20:40 Phosphorus 4.9 mg/dL (2.5-4.5) H 05/09/19 18:10 Magnesium 2.0 mg/dL (1.6-2.3) 05/09/19 18:10 Total Bilirubin 0.4 mg/dL (0.2-1.3) 05/09/19 18:10 AST 33 U/L (17-59) 05/09/19 18:10 ALT 68 U/L (21-72) 05/09/19 18:10 Alkaline Phosphatase 87 U/L (38-126) 05/09/19 18:10 Total Protein 8.2 g/dL (6.3-8.2) 05/09/19 18:10 Albumin 4.9 g/dL (3.5-5.0) 05/09/19 18:10 Triglycerides 600 mg/dL (<150) H 05/10/19 20:40 Cholesterol 165 mg/dL (<200) 05/10/19 20:40 LDL Cholesterol, Calc mg/dL (0-99) 05/10/19 20:40 HDL Cholesterol 22 mg/dL (40-60) L 05/10/19 20:40 TSH 3.360 mIU/L (0.465-4.680) 05/10/19 20:40 Urine Color Colorless 05/09/19 18:10 Urine Appearance Clear (Clear) 05/09/19 18:10 Urine pH 5.0 (5.0-8.0) 05/09/19 18:10 Ur Specific Mercer 1.003 (1.001-1.035) 05/09/19 18:10 Urine Protein Negative (Negative) 05/09/19 18:10 Urine Glucose (UA) Negative (Negative) 05/09/19 18:10 Urine Ketones Negative (Negative) 05/09/19 18:10 Urine Blood Negative (Negative) 05/09/19 18:10 Urine Nitrite Negative (Negative) 05/09/19 18:10 Urine Bilirubin Negative (Negative) 05/09/19 18:10 Urine Urobilinogen <2.0 mg/dL (<2.0) 05/09/19 18:10 Ur Leukocyte Esterase Negative (Negative) 05/09/19 18:10 Salicylates <1.0 mg/dL 05/09/19 18:10 Urine Opiates Screen Not Detected (NotDetected) 05/09/19 18:10 Ur Oxycodone Screen Not Detected (NotDetected) 05/09/19 18:10 Urine Methadone Screen Not Detected (NotDetected) 05/09/19 18:10 Ur Propoxyphene Screen Not Detected (NotDetected) 05/09/19 18:10 Acetaminophen <10.0 ug/mL 05/09/19 18:10 Ur Barbiturates Screen Not Detected (NotDetected) 05/09/19 18:10 U Tricyclic Antidepress Not Detected (NotDetected) 05/09/19 18:10 Ur Phencyclidine Scrn Not Detected (NotDetected) 05/09/19 18:10 Ur Amphetamines Screen Not Detected (NotDetected) 05/09/19 18:10 U Methamphetamines Scrn Not Detected (NotDetected) 05/09/19 18:10 U Benzodiazepines Scrn Not Detected (NotDetected) 05/09/19 18:10 Urine Cocaine Screen Not Detected (NotDetected) 05/09/19 18:10 U Marijuana (THC) Screen Not Detected (NotDetected) 05/09/19 18:10 Serum Alcohol 63 mg/dL 05/09/19 18:10 05/11/19 11:17 IDENTIFYING DATA: This patient is a 64-year-old single male was admitted to the mental health unit through the emergency room for acute suicidal ideation. HPI: [place] overdosing on 30 metformin tablets last evening. He states he felt overwhelmed hopeless. He describes his mood as being depressed. Sleep has been impaired appetite fluctuating energy low. He states he is overwhelmed by being homeless having no income and no support. It appears he had moved here from the [facility] just 3 weeks ago. His hope is to cross the bridge into [place]. He indicates that he is 90% [place] . He states that he was just discharged from a psychiatric unit in [place] he was there for 1 week and started on Risperdal and trazodone he felt the medications were ineffective. He was discharged yesterday and presented here. He reports continued thoughts of suicide no homicidal ideation. He reports for the last 5 months he's been experiencing auditory hallucinations telling him to kill himself. No visual hallucinations. He endorses no specific delusions. No history of hypomanic or manic episodes. He has had symptoms of anxiety due to his homelessness since he left [place]. PAST PSYCHIATRIC HISTORY: This would be his third inpatient psychiatric admission. He was hospitalized in [place] after a suicide attempt when he dropped off of a perez and fractured his ankles. He recently overdosed as noted above just prior to this admission. In the past he has been on Risperdal trazodone and he reports other psychotropics but he cannot recall which. He has no outpatient care established this time. PMH: Coronary artery disease he states he had a heart attack in [place] and underwent stenting ALLERGIES: Penicillin MEDICATIONS: Refer to [facility] CHEMICAL DEPENDENCY HISTORY: He reports using alcohol twice a week having 1-2 drinks, no use of marijuana or other illicit drugs he's never been placed in residential treatment for chemical dependency reasons. FAMILY PSYCHIATRIC HISTORY: None reported, no suicides in the family FAMILY CHEMICAL DEPENDENCY HISTORY: Both parents known to have alcohol use disorder SOCIAL HISTORY: A patient is 64 years old she single he has no children he has no siblings. He graduated high school no history of service. He is originally from [facility] he was residing in the [facility] since 1993. He is recently moved to this area 3 weeks ago in an effort to get to [place]. Legal history includes possession of stolen property numerous years ago, no abuse history. MENTAL STATUS EXAM: The patient is a male appearing his stated age is dressed in his own clothing hygiene grooming adequate. Speech is fluent sp ontaneous nonpressured. He endorses a depressed and hopeless mood he reports hopelessness thinking with continued suicidal ideation. He reports no homicidal ideation. He is reporting auditory hallucinations that are commanding in nature for the last 5 months no visual hallucinations. He is reporting no specific delusions. He demonstrates no tangential thinking loose associations or flight of ideas he does not appear hypomanic or manic. Thought process is linear. He demonstrates no verbal or physical aggressiveness he demonstrates no involuntary repetitive movements. He is oriented to person place and date. He is able to name the days of the week backwards. Affect is bland. STRENGTHS/WEAKNESSES: Strengths: He has applied for Medicaid insurance, weaknesses: Homelessness no income lack of support INTELLECTUAL FUNCTIONING: Average IMPRESSIONS: [] 1. Major depressive disorder recurrent severe with psychosis PLAN: The patient has been admitted to the mental health unit voluntarily. We reviewed his presenting symptoms and treatment options. We decided we would initiate Lexapro 10 mg daily for symptoms of depression and anxiety. We will initiate Abilify 2 mg daily for symptoms of psychosis and as an augmentation strategy for his depression. He felt the trazodone and Risperdal were ineffective and he was experiencing weight gain with Risperdal. He is been seen by internal medicine for routine history and physical exam. Social work will meet with the patient to complete a psychosocial assessment and discharge planning. We will encourage his participation in group we will monitor for safety.
[2019-05-11] MEDS ORDERED: ZIPRASIDONE 20 MG VIAL IM ONE ×2 (11:39→13:03)
[2019-05-11] MEDS: ARIPiprazole 2 MG TAB PO SCH (12:20)
[2019-05-11] MEDS: ESCITALOPRAM 10 MG TAB PO SCH (12:20)
[2019-05-11] MEDS: LORazepam 1 MG TAB PO PRN ×2 (12:20→17:55)
[2019-05-11 12:26] LABS: Glucose,Whole Blood 180 mg/dL (75-99)
[2019-05-11] MEDS: ASPIRIN 81 MG PO SCH (12:48)
[2019-05-11] MEDS: ATORVASTATIN 10 MG TAB PO SCH (12:48)
[2019-05-11 15:33] LABS: Hemoglobin A1C 7.8 % (4.0-6.0)
[2019-05-11 17:50] LABS: Glucose,Whole Blood 169 mg/dL (75-99)
[2019-05-11 20:09] LABS: Glucose,Whole Blood 189 mg/dL (75-99)
[2019-05-11] MEDS ORDERED: MELATONIN 5 MG TABLET PO SCH (21:00)
[2019-05-12 08:04] LABS: Glucose,Whole Blood 173 mg/dL (75-99)
[2019-05-12] MEDS: INSULIN ASPART (NovoLOG) 100 UNIT/ML VIAL SQ SCH ×4 (08:05→20:05)
[2019-05-12] MEDS: NICOTINE 14MG/24HR PATCH TRANSDERM SCH (08:34)
[2019-05-12] MEDS: ESCITALOPRAM 10 MG TAB PO SCH (08:34)
[2019-05-12] MEDS: ARIPiprazole 2 MG TAB PO SCH (08:34)
[2019-05-12] MEDS: ATORVASTATIN 10 MG TAB PO SCH (08:35)
[2019-05-12] MEDS: amLODIPine 10 MG TAB PO SCH (08:35)
[2019-05-12] MEDS: ASPIRIN 81 MG PO SCH (08:35)
[2019-05-12] MEDS: LORazepam 1 MG TAB PO PRN ×2 (08:37→16:33)
--- NOTE | 2019-05-12 11:12 | P.PN ---
Progress Note - Text Interval history: The patient is found in his room he follows me to an interview room. He indicates his mood is depressed he feels hopeless. He continues to hear voices that he states tell him to kill himself. He states that the voices are constantly there without interruption. He states that they do not change if he is in the presence of other people. He is most troubled by not sleeping enough although he admits he slept 6-7 hours. He has tried numerous medications to assist with sleep. He has only selectively been attending groups. He states that he is able to keep himself safe here on the mental health unit. He feels comfortable talking to staff if he needs assistance. Mental status exam: The patient is alert he is dressed in the same clothing. He has not yet showered. Grooming is disheveled. Eye contacts appropriate. He has spontaneous speech. He reports a depressed mood with ongoing suicidal thoughts. He endorses derogatory and command auditory hallucinations directing self-harm. He is reporting no visual hallucinations. He demonstrates no tangential thinking loose associations or flight of ideas. He appears to demonstrate passive aggressive behavior at times and he is encouraged to focus on healthier coping skills. Insight and judgment limited. He demonstrates no verbal or physical aggressiveness he demonstrates no involuntary repetitive movements. Impression/plan: Major depressive disorder recurrent severe with psychosis, alcohol use disorder, the patient will continue on the Lexapro. We will titrate the Abilify to 10 mg at bedtime to address the psychosis. We will continue to monitor his vital signs. He is encouraged to more fully participate in the milieu. We discussed the possibility of having him attend inpatient chemical dependency treatment. He is undecided but will give this further consideration.
[2019-05-12 12:39] LABS: Glucose,Whole Blood 137 mg/dL (75-99)
[2019-05-12] MEDS: ACETAMINOPHEN TAB 325 MG TAB PO PRN (16:33)
[2019-05-12 17:39] LABS: Glucose,Whole Blood 210 mg/dL (75-99)
[2019-05-12] MEDS: ZIPRASIDONE 20 MG VIAL IM PRN (18:13)
[2019-05-12 20:01] LABS: Glucose,Whole Blood 190 mg/dL (75-99)
[2019-05-12] MEDS: ARIPiprazole 10 MG TAB PO SCH (20:05)
[2019-05-12] MEDS: hydrOXYzine PAMOATE 25 MG CAP PO SCH (20:05)
[2019-05-12] MEDS ORDERED: ZIPRASIDONE 20 MG VIAL IM STA ×2 (21:37→21:46)
[2019-05-13 07:56] LABS: Glucose,Whole Blood 194 mg/dL (75-99)
[2019-05-13] MEDS: INSULIN ASPART (NovoLOG) 100 UNIT/ML VIAL SQ SCH ×4 (08:21→20:32)
[2019-05-13] MEDS: ASPIRIN 81 MG PO SCH (08:39)
[2019-05-13] MEDS: ESCITALOPRAM 10 MG TAB PO SCH (08:39)
[2019-05-13] MEDS: ATORVASTATIN 10 MG TAB PO SCH (08:39)
[2019-05-13] MEDS: NICOTINE 14MG/24HR PATCH TRANSDERM SCH (08:39)
[2019-05-13] MEDS: amLODIPine 10 MG TAB PO SCH (08:39)
[2019-05-13] MEDS: LORazepam 1 MG TAB PO PRN ×2 (08:41→21:04)
--- NOTE | 2019-05-13 10:05 | P.PN ---
Progress Note - Text Interval history: The patient's found in his room sleeping he follows me to an interview room. He indicates his mood is better today. He did receive several injections yesterday at his request force symptoms of psychosis. He states ultimately he was able to sleep. He states he attended all groups yesterday we will discuss that during treatment team to verify. We reviewed his psychotropic medications. His questions were answered. The case that he is eating shower yesterday. He does not commit to wanting to attend inpatient chemical dependency treatment. He is encouraged to call the consulate to see how he can get back into [place] as that is his goal upon discharge. Mental status exam: The patient is alert he has a disheveled appearance he is dressed in the same clothing is yesterday. Eye contacts appropriate speech is fluent spontaneous nonpressured. He reports still having hopelessness thinking he feels safe in the hospital. He reports no homicidal ideation intent or plan. He demonstrates no tangential thinking this associations or flight of ideas. Insight and judgment limited. Affect remains bland. He reports ongoing auditory hallucinations that direct self-harm and are derogatory. He reports no visual hallucinations. He endorses no specific delusions. He demonstrates no verbal or physical aggressiveness no involuntary repetitive movements. Plan: The patient will continue on his current psychotropic medications he is encouraged to stay out of bed now and attending groups. We will monitor him for safety. Vital signs reviewed. He requires continued psychiatric hospitalization. He is encouraged to make phone calls about how to reenter [place] as that is his goal upon discharge.
[2019-05-13 12:40] LABS: Glucose,Whole Blood 148 mg/dL (75-99)
[2019-05-13 17:24] LABS: Glucose,Whole Blood 206 mg/dL (75-99)
[2019-05-13] MEDS: ACETAMINOPHEN TAB 325 MG TAB PO PRN (18:30)
[2019-05-13 20:10] LABS: Glucose,Whole Blood 213 mg/dL (75-99)
[2019-05-13] MEDS: ARIPiprazole 10 MG TAB PO SCH (21:03)
[2019-05-13] MEDS: hydrOXYzine PAMOATE 25 MG CAP PO SCH (21:03)
[2019-05-13] MEDS: metFORMIN 500 MG TAB PO SCH (22:31)
[2019-05-13] MEDS: ZIPRASIDONE 20 MG VIAL IM PRN (22:39)
[2019-05-14 07:49] LABS: Glucose,Whole Blood 170 mg/dL (75-99)
[2019-05-14] MEDS: ATORVASTATIN 10 MG TAB PO SCH (08:19)
[2019-05-14] MEDS: amLODIPine 10 MG TAB PO SCH (08:19)
[2019-05-14] MEDS: metFORMIN 500 MG TAB PO SCH ×2 (08:19→17:56)
[2019-05-14] MEDS: ESCITALOPRAM 10 MG TAB PO SCH (08:19)
[2019-05-14] MEDS: NICOTINE 14MG/24HR PATCH TRANSDERM SCH (08:19)
[2019-05-14] MEDS: ASPIRIN 81 MG PO SCH (08:19)
[2019-05-14] MEDS: INSULIN ASPART (NovoLOG) 100 UNIT/ML VIAL SQ SCH ×4 (08:21→20:48)
[2019-05-14] MEDS: LORazepam 1 MG TAB PO PRN ×2 (08:21→17:59)
[2019-05-14] MEDS: ZIPRASIDONE 20 MG VIAL IM PRN ×2 (10:44→20:56)
--- NOTE | 2019-05-14 11:12 | P.PN ---
Progress Note - Text Progress Note Date: 05/14/19 Interval history: Patient was seen wandering the hallways and was agreeable to seek to sign writer letterer or painter in the office. Patient appeared to have a constricted off and stated that he is feeling mildly improved on the medications however continues to hear the auditory hallucinations command telling him to kill himself. He states that the medications are helping and is aware that it takes time. He states that he is going to groups and finding them helpful and also he is sleeping at night and eating well. At this time patient denies any suicidal or homicidal ideations intent or plan. Denies any visual hallucinations. Patient denies any side effects from the medications and has been compliant with meds. Mental status exam: General Appearance: Patient appears to be older than stated age is alert, and cooperative. Wearing street clothing Behavior: No agitated behavior. Patient is calm and directable Speech: Patient's speech is fluent and nonpressured. Soft tone Mood/Affect: Mood is improving, affect is congruent and constricted. Suicidality/Homicidality: Patient denies having any homicidal ideation intent or plan. He states that he is having suicidal ideations however no immediate intent or plan. Perceptions: Patient denies visual hallucinations. Admits to command auditory hallucinations. Though content/process: There is no evidence of any delusional thought content and thought process is linear and goal-directed. Memory and concentration: AOX3, grossly intact for the purposes of this session Judgment and insight: improving Assessment/Plan: Continue with current diagnosis. Patient continues to meet criteria for inpatient psychiatric admission for symptom stabilization and safety.Patient will be maintained on current psychotropic medication regimen. Monitor for medication compliance and for any psychotropic medication side effects. Will continue to monitor ongoing response to treatment.
[2019-05-14 12:28] LABS: Glucose,Whole Blood 176 mg/dL (75-99)
[2019-05-14 17:39] LABS: Glucose,Whole Blood 124 mg/dL (75-99)
[2019-05-14 20:42] LABS: Glucose,Whole Blood 216 mg/dL (75-99)
[2019-05-14] MEDS: ARIPiprazole 10 MG TAB PO SCH (20:53)
[2019-05-14] MEDS: hydrOXYzine PAMOATE 25 MG CAP PO SCH (20:53)
[2019-05-15 07:45] LABS: Glucose,Whole Blood 209 mg/dL (75-99)
[2019-05-15] MEDS: amLODIPine 10 MG TAB PO SCH (08:39)
[2019-05-15] MEDS: ESCITALOPRAM 10 MG TAB PO SCH (08:39)
[2019-05-15] MEDS: ATORVASTATIN 10 MG TAB PO SCH (08:39)
[2019-05-15] MEDS: NICOTINE 14MG/24HR PATCH TRANSDERM SCH (08:39)
[2019-05-15] MEDS: ASPIRIN 81 MG PO SCH (08:39)
[2019-05-15] MEDS: metFORMIN 500 MG TAB PO SCH ×2 (08:39→17:42)
[2019-05-15] MEDS: INSULIN ASPART (NovoLOG) 100 UNIT/ML VIAL SQ SCH ×4 (08:39→20:34)
[2019-05-15] MEDS: LORazepam 1 MG TAB PO PRN ×2 (08:40→19:19)
--- NOTE | 2019-05-15 10:46 | P.PN ---
Progress Note - Text Progress Note Date: 05/15/19 Interval history: Patient was seen lying in his bed and was agreeable to seek to insurance writer in the office. Patient appeared to have a constricted affect however did state that he is feeling much better at this time. She remains positive on his medications and his outlook for the future. He states that theauditory hallucinations command telling him to kill himself have improved. He states that he is going to groups and finding them helpful and also he is sleeping at night and eating well. He did mention that last night there was a agitated patient and the hallways which disturb his sleep. At this time patient denies any suicidal or homicidal ideations intent or plan. Denies any visual hallucinations. Patient denies any side effects from the medications and has been compliant with meds. Mental status exam: General Appearance: Patient appears to be older than stated age is alert, and cooperative. Wearing street clothing Behavior: No agitated behavior. Patient is calm and directable Speech: Patient's speech is fluent and nonpressured Mood/Affect: Mood is improving, affect is congruent and constricted. Suicidality/Homicidality: Patient denies having any homicidal ideation intent or plan. He denies any suicidal ideations at this time. Perceptions: Patient denies visual hallucinations. Admits to command auditory hallucinations. Though content/process: There is no evidence of any delusional thought content and thought process is linear and goal-directed. Memory and concentration: AOX3, grossly intact for the purposes of this session Judgment and insight: improving mildly Assessment/Plan: Continue with current diagnosis. Patient continues to meet criteria for inpatient psychiatric admission for symptom stabilization and safety.Patient will be maintained on current psychotropic medication regimen. Vital signs appear to be stable and patient is compliant with medications. Monitor for medication compliance and for any psychotropic medication side effects. Will continue to monitor ongoing response to treatment.
[2019-05-15] MEDS: ACETAMINOPHEN TAB 325 MG TAB PO PRN (12:11)
[2019-05-15 12:30] LABS: Glucose,Whole Blood 133 mg/dL (75-99)
--- NOTE | 2019-05-15 15:04 | P.PN ---
Subjective Progress Note Date: 05/15/19 Principal diagnosis: Called patient regarding his vision going dark. Patient seen and examined in the office. He tells me that intermittently his vision goes completely flat and he is applying this last approximately 1-2 minutes. I asked him when this typically occurs. He initially tells me he doesn't remember. He then states maybe it's when he is up and walking. I asked him how frequently this occurs and he was unable to tell me, but did say happened today. He is unsure if he's had this before. However he told nursing he had this when he was at [facility] and it was worked up and he was told he didn't have a problem. He believes the last 1-2 minutes. Hold onto the burton when it occurs. He denies any falls. No chest pain or shortness of breath. He denies any lightheadedness, dizziness, or presyncopal feelings during this time. Denies any palpitations. He does say he feels his heart racing at times. He denies any nausea or vomiting and states that his appetite has been normal. He is very vague and the description of the symptoms, when they occur, how long they last, and any precursor. He denies any headaches associated with this, double vision or blurry vision. Objective - Vital Signs Vital signs: Vital Signs Temp 97.7 F 05/15/19 06:54 Pulse 70 05/15/19 06:54 Resp 18 05/15/19 06:54 BP 144/72 05/15/19 06:54 Pulse Ox 94 L 05/10/19 18:08 - Exam General: non toxic, no distress, appears at stated age Derm: warm, dry Head: atraumatic, normocephalic, symmetric Eyes: EOMI, no lid lag, anicteric sclera Mouth: no lip lesion, mucus membranes moist Cardiovascular: S1S2 tachycardiac, no murmur, positive posterior tibial pulse bilateral, Lungs: CTA bilateral, no rhonchi, no rales , no accessory muscle use Abdominal: soft, nontender to palpation, no guarding, no appreciable organomegaly Ext: no gross muscle atrophy, no edema, no contractures Neuro: CN II-XI intact, ambulating the hallways without difficulty, muscle strength 5 out of 5 in upper extremities, finger to nose within normal limits Psych: Alert, oriented, appropriate affect - Labs CBC & Chem 7: 05/09/19 18:10 05/10/19 20:40 Labs: Abnormal Lab Results - Last 24 Hours (Table) 05/14/19 05/14/19 05/15/19 Range/Units 17:37 20:39 07:44 POC Glucose (mg/dL) 124 H 216 H 209 H (75-99) mg/dL 05/15/19 Range/Units 12:28 POC Glucose (mg/dL) 133 H (75-99) mg/dL Assessment and Plan Assessment: Episodes of black vision -Check orthostatic vital signs, check for tachycardia upon walking as patient has a history of atrial fibrillation, check EKG, stat CBC and basic metabolic profile -Could be secondary to uncontrolled heart rate or orthostatic hypotension due to medications -If this initial workup is unrevealing would suggest outpatient neurologic evaluation -Did inform patient that if he loses his vision and it doesn't return, alert nursing immediately -Discussed with nursing who state they have not witnessed inhaler to burton are. Have lost his vision. They didn't know S1 time where he was having some d isequilibrium after receiving Geodon shot. Atrial fibrillation -On aspirin for prophylaxis which seems appropriate given his comorbidities and difficulty with compliance secondary to being from [place] on -Not on any rate controlling medications -Check for tachycardia as listed above Hypertension, controlled - follow BP - continue norvasc Diabetes mellitus type 2 -Continue with metformin -Typically blood sugars have been fairly well controlled -Hemoglobin A1c 7.8 NSAID overdose -Recheck basic metabolic profile to assess for signs of acidosis or worsening kidney function Dyslipidemia -Statin therapy -We'll check on results of this testing later today. Further recommendations pending clinical course.
[2019-05-15] MEDS ORDERED: METOPROLOL TARTRATE 12.5 MG TAB PO STA (15:25)
[2019-05-15 15:29] LABS: HCT 43.1 % (39.0-53.0); HGB 15.5 gm/dL (13.0-17.5); Mean Platelet Volume 7.5; Platelet Count 239 k/uL (150-450); RBC 4.84 m/uL (4.30-5.90); WBC 7.2 k/uL (3.8-10.6)
[2019-05-15 15:37] LABS: African American GFR (CKD) >90 (>60 ml/min/1.73 sqM); Anion Gap 11 mmol/L; Blood Urea Nitrogen 16 mg/dL (9-20); Calcium 10.1 mg/dL (8.4-10.2); Carbon Dioxide 26 mmol/L (22-30); Chloride 103 mmol/L (98-107); Glucose 169 mg/dL (74-99); Potassium 4.4 mmol/L (3.5-5.1); Sodium 140 mmol/L (137-145)
[2019-05-15 17:27] LABS: Glucose,Whole Blood 192 mg/dL (75-99)
[2019-05-15 20:16] LABS: Glucose,Whole Blood 179 mg/dL (75-99)
[2019-05-15] MEDS: hydrOXYzine PAMOATE 25 MG CAP PO SCH (20:53)
[2019-05-15] MEDS: ARIPiprazole 10 MG TAB PO SCH (20:53)
[2019-05-15] MEDS: METOPROLOL TARTRATE 25 MG TAB PO SCH (20:53)
[2019-05-15] MEDS: diphenhydrAMINE 25 MG CAP PO PRN (20:54)
[2019-05-16 07:40] LABS: Glucose,Whole Blood 166 mg/dL (75-99)
[2019-05-16] MEDS: INSULIN ASPART (NovoLOG) 100 UNIT/ML VIAL SQ SCH ×4 (08:18→20:33)
[2019-05-16] MEDS: NICOTINE 14MG/24HR PATCH TRANSDERM SCH (08:33)
[2019-05-16] MEDS: metFORMIN 500 MG TAB PO SCH ×2 (08:33→17:01)
[2019-05-16] MEDS: METOPROLOL TARTRATE 25 MG TAB PO SCH ×2 (08:33→20:43)
[2019-05-16] MEDS: LORazepam 1 MG TAB PO PRN ×2 (08:33→20:44)
[2019-05-16] MEDS: ATORVASTATIN 10 MG TAB PO SCH (08:33)
[2019-05-16] MEDS: ESCITALOPRAM 10 MG TAB PO SCH (08:33)
[2019-05-16] MEDS: ASPIRIN 81 MG PO SCH (08:33)
--- NOTE | 2019-05-16 09:55 | P.PN ---
Progress Note - Text Interval history: The patient is found in the hallway he follows me to an interview room. He indicates that he is not sleeping well. Staff report he slept 5 hours. He states that he continues to experience auditory hallucinations that are directing self-harm. He indicates since using the Abilify they have become mildly quieter but not unknown off to improve his mood. He states he continues to have difficulty sleeping because of the voices all night long. He reports that nothing helps him sleep better at night. He requests Xanax. He was seen by internal medicine regarding a complaint with his vision. Antihypertensive medication changes were made and we are doing orthostatic vitals on him daily. He indicates he is attending several groups which may not be accurate. We reviewed his psychotropic medication. Mental status exam: The patient is alert he is observed ambulating in the hallway without difficulty. He maintains alertness throughout the session. He has a disheveled appearance hygiene appears to be adequate. He is dressed in his own clothing. Speech is fluent spontaneous nonpressured. Affect is constr icted. He reports ongoing auditory hallucinations directing self-harm. He indicates their present all day long and are not influenced by the presence of others. He reports no visual hallucinations he reports no specific delusion. He demonstrates no verbal or physical aggressiveness. He seated calmly in the chair he demonstrates no evidence of responding to internal stimuli such as auditory hallucinations. He reports suicidal thoughts because of the hallucinations. Impression/plan: Continued reported symptoms of psychosis, we will titrate the Abilify to 15 mg at bedtime continue Lexapro is written. We will monitor him for safety. He is resistant but we are continuing our discussions as to where he will go upon discharge. Vital signs reviewed. We will continue to monitor him for safety.
[2019-05-16 12:36] LABS: Glucose,Whole Blood 160 mg/dL (75-99)
[2019-05-16] MEDS: ACETAMINOPHEN TAB 325 MG TAB PO PRN (17:01)
[2019-05-16 17:46] LABS: Glucose,Whole Blood 157 mg/dL (75-99)
[2019-05-16 19:54] LABS: Glucose,Whole Blood 151 mg/dL (75-99)
[2019-05-16] MEDS: ARIPiprazole 15 MG TAB PO SCH (20:43)
[2019-05-16] MEDS: diphenhydrAMINE 25 MG CAP PO PRN (20:44)
[2019-05-16] MEDS: hydrOXYzine PAMOATE 25 MG CAP PO SCH (20:45)
[2019-05-17 07:43] LABS: Glucose,Whole Blood 175 mg/dL (75-99)
[2019-05-17] MEDS: INSULIN ASPART (NovoLOG) 100 UNIT/ML VIAL SQ SCH ×4 (08:06→20:21)
[2019-05-17] MEDS: metFORMIN 500 MG TAB PO SCH ×2 (08:08→17:47)
[2019-05-17] MEDS: ASPIRIN 81 MG PO SCH (08:11)
[2019-05-17] MEDS: ATORVASTATIN 10 MG TAB PO SCH (08:11)
[2019-05-17] MEDS: ESCITALOPRAM 10 MG TAB PO SCH (08:11)
[2019-05-17] MEDS: METOPROLOL TARTRATE 25 MG TAB PO SCH ×2 (08:24→20:16)
[2019-05-17] MEDS: NICOTINE 14MG/24HR PATCH TRANSDERM SCH (08:24)
[2019-05-17] MEDS: LORazepam 1 MG TAB PO PRN ×2 (08:25→20:19)
--- NOTE | 2019-05-17 11:36 | P.PN ---
Progress Note - Text Interval history: The patient is found in his room he follows me to an interview room. He indicates his mood is better. He states that the medicine has helped quiet the hallucinations. He indicates he slept 4-5 hours last night staff report he slept 7. He was sleeping in his room upon approach. He states that it is his plan to use his documentation to legally cross the bridge into [place]. He reports that he made phone calls yesterday trying to find someone who would help him with transportation. Mental status exam: The patient is alert he is cooperative. Initially he has a constricted affect and is argumentative but as the session goes on that resolves and he was much more cooperative. He reports no acute suicidal ideation intent or plan he is reporting no homicidal ideation intent or plan. He is reporting no current auditory or visual hallucinations he is endorsing no specific delusions. He does not appear to be hypomanic or manic. Insight and judgment improving. He demonstrates no observed evidence of psychosis. He demonstrates no verbal or physical aggressiveness. He is oriented to person place and date. Since he has been here he has verbalized a goal of obtaining legal and treatment back into [place] where he is originally from. Plan: The patient reports improvements of his psychotic symptoms and mood symptoms. He is demonstrating future oriented thinking. We will continue the medication as written I will discontinue the Geodon when necessary as it seems unnecessary. He is encouraged to stay out of bed during the day and attending groups. Vital signs reviewed. We will continue to monitor him for safety. If he demonstrates continued stability/improvement we will consider discharge in the next 1-2 days
[2019-05-17 12:43] LABS: Glucose,Whole Blood 146 mg/dL (75-99)
[2019-05-17 17:37] LABS: Glucose,Whole Blood 210 mg/dL (75-99)
[2019-05-17 20:11] LABS: Glucose,Whole Blood 182 mg/dL (75-99)
[2019-05-17] MEDS: hydrOXYzine PAMOATE 25 MG CAP PO SCH (20:16)
[2019-05-17] MEDS: ARIPiprazole 15 MG TAB PO SCH (20:16)
[2019-05-17] MEDS: diphenhydrAMINE 25 MG CAP PO PRN (20:19)
[2019-05-18 07:02] VITALS: TEMP 97.9
[2019-05-18 07:41] LABS: Glucose,Whole Blood 157 mg/dL (75-99)
[2019-05-18] MEDS: INSULIN ASPART (NovoLOG) 100 UNIT/ML VIAL SQ SCH ×2 (07:46→12:50)
[2019-05-18] MEDS: NICOTINE 14MG/24HR PATCH TRANSDERM SCH (08:26)
[2019-05-18] MEDS: METOPROLOL TARTRATE 25 MG TAB PO SCH (08:27)
[2019-05-18] MEDS: ASPIRIN 81 MG PO SCH (08:27)
[2019-05-18] MEDS: metFORMIN 500 MG TAB PO SCH (08:27)
[2019-05-18] MEDS: ATORVASTATIN 10 MG TAB PO SCH (08:27)
[2019-05-18] MEDS: ESCITALOPRAM 10 MG TAB PO SCH (08:27)
[2019-05-18 08:30] VITALS: BP 129/70; PULSE 69; RESP 18
[2019-05-18] MEDS: LORazepam 1 MG TAB PO PRN (08:44)
--- NOTE | 2019-05-18 11:05 | P.DS ---
Providers Date of admission: 05/10/19 16:46 Expected date of discharge: 05/18/19 Attending physician: Rayo Berger Consults: 05/10/19 19:24 Consult Physician Routine Consulting Provider: Thais Ernst Consult Reason/Comments: H&P and medical and hyperglycemia Do you want consulting provider notified?: Yes Primary care physician: Stated None - Discharge Diagnosis(es) (1) Major depressive disorder, recurrent, severe with psychotic symptoms Current Visit: Yes Status: Acute Priority: High Hospital Course: Brief summary of admission note: This patient is a 64-year-old single male that was admitted to the mental health unit through the emergency room for suicidal ideation. [place]dosing on 30 metformin tablets. He felt overwhelmed and hopeless. He described his mood as being depressed with low energy. He had been overwhelmed by being homeless. For full details please refer to my psychiatric evaluation dated 05/11/2019. Summary of hospital course: The patient was admitted to the mental health unit voluntarily. He reviewed his presenting symptoms and treatment options. He was started on Lexapro for symptoms of depression. Later we added Abilify and titrated the dose as he continued to complain of auditory hallucinations that were derogatory and commanding self-harm. He describes significant sleep disturbance but it turned out he was sleeping at night and also spending too much time in bed during the day. He was encouraged to get out of bed in the morning and participate in the milieu. He selectively attended groups. He reported it was his goal to get back to [place] and reside again on the [facility] he was from. We discovered that he had been at several other psychiatric units prior to this admission area he reports a resolution of any suicidal ideation. He reports the auditory hallucinations are now absent. He reports no command auditory hallucinations. He spontaneously describes the steps he will take to get back in to [place]. [facility] until he accomplishes his goal. He Mental status exam: The patient is alert he is dressed in his own clothing hygiene grooming adequate. Speech is fluent spontaneous. He reports his mood is good his affect is bright and euthymic. He is reporting no suicidal ideation intent or plan. He is reporting no homicidal ideation intent or plan. He is demonstrating no observed evidence of psychosis. He reports no auditory or visual hallucinations or any specific delusions. He states the medication has helped resolve the symptoms of psychosis. He demonstrates no tangential thinking loose associations or flight of ideas. He does not appear to be hypomanic or manic. Insight and judgment much improved. He remains oriented to person place and date. He demonstrates no verbal or physical aggressiveness he demonstrates no involuntary repetitive movements. He demonstrates future oriented thinking. Impressions 1. Major depressive disorder recurrent severe with with psychosis Plan: The patient will be discharged today from the mental health unit he plans [facility]. He will continue on Lexapro 10 mg daily Abilify 15 mg daily. He indicates he no longer has any suicidal ideation he is reporting no auditory hallucinations. There is no imminent safety risk he is appropriate for transition outpatient care. He will be scheduled for an intake appointment with [facility]. He is instructed to abstain from any use of alcohol marijuana or illicit drugs as a may precipitate mood symptoms and elevate his safety risk. He is instructed to return to the hospital with any acute safety concerns. Patient Condition at Discharge: Stable Plan - Discharge Summary New Discharge Prescriptions: New ARIPiprazole [Abilify] 15 mg PO HS #15 tab Aspirin 81 mg PO DAILY #15 chew metFORMIN HCL [Glucophage] 500 mg PO BID-W/MEALS #30 tab Nicotine 14Mg/24Hr Patch [Habitrol] 1 patch TRANSDERM DAILY #14 patch Escitalopram [Lexapro] 10 mg PO DAILY #15 tab Atorvastatin [Lipitor] 10 mg PO DAILY #15 tab Metoprolol Tartrate [Lopressor] 25 mg PO BID #30 tab Discharge Medication List ARIPiprazole [Abilify] 15 mg PO HS #15 tab 05/18/19 [Rx] Aspirin 81 mg PO DAILY #15 chew 05/18/19 [Rx] Atorvastatin [Lipitor] 10 mg PO DAILY #15 tab 05/18/19 [Rx] Escitalopram [Lexapro] 10 mg PO DAILY #15 tab 05/18/19 [Rx] Metoprolol Tartrate [Lopressor] 25 mg PO BID #30 tab 05/18/19 [Rx] Nicotine 14Mg/24Hr Patch [Habitrol] 1 patch TRANSDERM DAILY #14 patch 05/18/19 [Rx] metFORMIN HCL [Glucophage] 500 mg PO BID-W/MEALS #30 tab 05/18/19 [Rx] Follow up Appointment(s)/Referral(s): None,Stated [Primary Care Provider] - 1-2 days Patient Instructions/Handouts: Depression (DC) Activity/Diet/Wound Care/Special Instructions: Patient will be admitted
[2019-05-18 12:37] LABS: Glucose,Whole Blood 168 mg/dL (75-99)
== END 2019-05-18 13:47 | disposition home or self-care (01) | DRG 885 ==
LOC: EC 21:03 → 3MHU 05-10 16:46
PROVIDERS: ADMIT Psychiatry & Neurology Psychiatry; ATTEND Psychiatry & Neurology Psychiatry
DX: F33.3 Major depressive disorder, recurrent, severe with psychotic symptoms (principal); E11.65 Type 2 diabetes mellitus with hyperglycemia; E78.5 Hyperlipidemia, unspecified; F10.10 Alcohol abuse, uncomplicated; H53.8 Other visual disturbances; F17.210 Nicotine dependence, cigarettes, uncomplicated; Z59.0 Homelessness; I10 Essential (primary) hypertension; I25.10 Atherosclerotic heart disease of native coronary artery without angina pectoris; I25.2 Old myocardial infarction; I48.91 Unspecified atrial fibrillation; J44.9 Chronic obstructive pulmonary disease, unspecified; W22.09XA Striking against other stationary object, initial encounter; Z79.899 Other long term (current) drug therapy; T38.3X2A Poisoning by insulin and oral hypoglycemic [antidiabetic] drugs, intentional self-harm, initial encounter; Z88.0 Allergy status to penicillin; Z81.1 Family history of alcohol abuse and dependence
CPT/HCPCS: 36415; 70450; 72125; 80048; 80053; 80061; 80306; 80320; 80329; 81003; 82075; 82803; 83036; 83520; 83605; 83735; 84100; 84443; 85025; 85027; 85610; 85730; 93005; 96360; 99285

== ENCOUNTER 2020-03-15 11:00 | Inpatient (IN) | payer MEDICAID, MEDICARE, OTHER ==
--- NOTE | 2020-03-15 11:52 | ED ---
Dizziness HPI - General Chief Complaint: Dizziness Stated Complaint: abd pain Time Seen by Provider: 03/15/20 11:36 Source: patient Mode of arrival: ambulatory Limitations: no limitations - History of Present Illness Initial Comments: Patient is a 65-year-old male with history of COPD, CAD, hypertension and hypercholesterolemia presenting to emergency Department with chief complaint of dizziness, headache, abdominal pain. Patient reports symptoms have been ongoing for approximately 1 weeks. Patient reports they all started once. Patient reports there is intermittent right upper quadrant abdominal pain with decreased appetite but no unexplained weight loss. Patient does report nausea but denies vomiting or diarrhea. Patient also reports a headache near the cervical prominence but denies any fevers at home. He does report dizziness where the room is spinning around him. He does report occasional blurry vision but not at this moment. Patient also reports some weakness in his left arm and states he cannot hold his hammer at work. He does report some trouble walking. Again, the symptoms started about 1 week ago. - Related Data Home Medications Medication Instructions Recorded Confirmed Lisinopril (Unknown Dose) 1 tab PO HS 03/15/20 03/15/20 Allergies Allergy/AdvReac Type Severity Reaction Status Date / Time Penicillins Allergy Anaphylaxis Verified 03/15/20 13:51 Review of Systems ROS Statement: Those systems with pertinent positive or pertinent negative responses have been documented in the HPI. ROS Other: All systems not noted in ROS Statement are negative. Past Medical History Past Medical History: Atrial Fibrillation, COPD, Hyperlipidemia, Hypertension History of Any Multi-Drug Resistant Organisms: None Reported Past Surgical History: Appendectomy, Tonsillectomy Past Psychological History: Depression Smoking Status: Current every day smoker Past Alcohol Use History: None Reported Past Drug Use History: None Reported General Exam Limitations: no limitations General appearance: alert, in no apparent distress Head exam: Present: atraumatic, normocephalic, normal inspection Eye exam: Present: normal appearance, PERRL, EOMI. Absent: scleral icterus, conjunctival injection, nystagmus Pupils: Present: normal accommodation ENT exam: Present: normal exam, normal oropharynx, mucous membranes moist, TM's normal bilaterally, normal external ear exam Neck exam: Present: normal inspection, full ROM. Absent: tenderness Respiratory exam: Present: normal lung sounds bilaterally. Absent: respiratory distress, wheezes Cardiovascular Exam: Present: regular rate, normal rhythm, normal heart sounds GI/Abdominal exam: Present: soft, tenderness (Right upper quadrant tenderness. Negative Rojas.). Absent: distended, guarding Extremities exam: Present: normal inspection, full ROM. Absent: tenderness Back exam: Present: normal inspection, full ROM. Absent: tenderness Neurological exam: Present: alert, oriented X3, normal gait, motor sensory deficit (Mild pronator drift in the left approximately.). Absent: altered, CN II-XII intact (Slight decrease in sensation on the left side of the face, left upper and lower extremity. Slight decrease in clean up person in the left hand.) Psychiatric exam: Present: normal affect, normal mood Skin exam: Present: warm, dry, intact, normal color Course Vital Signs 03/15/20 03/15/20 03/15/20 11:17 12:36 13:00 Temperature 98.2 F Pulse Rate 62 62 Respiratory 18 18 18 Rate Blood Pressure 165/84 160/85 O2 Sat by Pulse 99 98 Oximetry 03/15/20 14:00 Temperature Pulse Rate 63 Respiratory 18 Rate Blood Pressure 142/73 O2 Sat by Pulse 98 Oximetry EKG Findings - EKG Comments: EKG Findings:: Sinus rhythm, no ST-T wave changes. Ventricular rate 60, KY 140, QRS 84, QTC 396. Medical Decision Making - Medical Decision Making Patient is a 65-year-old male with history of COPD and CAD presenting to emergency department with multiple chief complaints. On exam patient has mild right upper quadrant tenderness with negative Rojas sign. Also some neck pain near the cervical prominence but no fevers at home. He has full range of motion of neck. Slightly decreased strength in the left hand. Slight pronator drift in the left upper extremity. Mild decrease in sensation on the left side of his face, left upper extremity left lower external lip. Face symmetrical. No aphasia. Patient is alert and oriented 3. NIH 3. CBC CMP unremarkable. INR within normal limits. Troponin negative. Brain CT without contrast revealed nonspecific white matter changes most typical of remote microvascular ischemia with no acute intracranial hemorrhage or mass effect. Brain angiogram reveals moderate to severe bilateral plaque build up in the carotid bulb without hemodynamically significant stenosis. Focal noncalcified plaque proximal right internal carotid artery causing stenosis approaching but not fully 50%. Patient will be admitted for further medical management. Case discussed with Dr. Monet. Admitting physician is . Neurology consulted - Lab Data Result diagrams: 03/15/20 11:37 07/23/20 11:37 Lab Results 03/15/20 03/15/20 03/15/20 Range/Units 11:37 11:37 11:37 WBC 6.2 (3.8-10.6) k/uL RBC 5.15 (4.30-5.90) m/uL Hgb 16.1 (13.0-17.5) gm/dL Hct 48.8 (39.0-53.0) % MCV 94.7 (80.0-100.0) fL MCH 31.3 (25.0-35.0) pg MCHC 33.1 (31.0-37.0) g/dL RDW 13.4 (11.5-15.5) % Plt Count 200 (150-450) k/uL Neutrophils % 52 % Lymphocytes % 36 % Monocytes % 7 % Eosinophils % 1 % Basophils % 1 % Neutrophils # 3.2 (1.3-7.7) k/uL Lymphocytes # 2.2 (1.0-4.8) k/uL Monocytes # 0.4 (0-1.0) k/uL Eosinophils # 0.1 (0-0.7) k/uL Basophils # 0.1 (0-0.2) k/uL PT 9.9 (9.0-12.0) sec INR 0.9 (<1.2) APTT 26.4 (22.0-30.0) sec Sodium 138 (137-145) mmol/L Potassium 4.6 (3.5-5.1) mmol/L Chloride 105 (98-107) mmol/L Carbon Dioxide 25 (22-30) mmol/L Anion Gap 8 mmol/L BUN 15 (9-20) mg/dL Creatinine 0.87 (0.66-1.25) mg/dL Est GFR (CKD-EPI)AfAm >90 (>60 ml/min/1.73 sqM) Est GFR (CKD-EPI)NonAf >90 (>60 ml/min/1.73 sqM) Glucose 83 (74-99) mg/dL Calcium 9.6 (8.4-10.2) mg/dL Total Bilirubin 0.6 (0.2-1.3) mg/dL AST 32 (17-59) U/L ALT 30 (4-49) U/L Alkaline Phosphatase 107 (38-126) U/L Troponin I (0.000-0.034) ng/mL Total Protein 7.7 (6.3-8.2) g/dL Albumin 4.7 (3.5-5.0) g/dL 03/15/20 Range/Units 11:37 WBC (3.8-10.6) k/uL RBC (4.30-5.90) m/uL Hgb (13.0-17.5) gm/dL Hct (39.0-53.0) % MCV (80.0-100.0) fL MCH (25.0-35.0) pg MCHC (31.0-37.0) g/dL RDW (11.5-15.5) % Plt Count (150-450) k/uL Neutrophils % % Lymphocytes % % Monocytes % % Eosinophils % % Basophils % % Neutrophils # (1.3-7.7) k/uL Lymphocytes # (1.0-4.8) k/uL Monocytes # (0-1.0) k/uL Eosinophils # (0-0.7) k/uL Basophils # (0-0.2) k/uL PT (9.0-12.0) sec INR (<1.2) APTT (22.0-30.0) sec Sodium (137-145) mmol/L Potassium (3.5-5.1) mmol/L Chloride (98-107) mmol/L Carbon Dioxide (22-30) mmol/L Anion Gap mmol/L BUN (9-20) mg/dL Creatinine (0.66-1.25) mg/dL Est GFR (CKD-EPI)AfAm (>60 ml/min/1.73 sqM) Est GFR (CKD-EPI)NonAf (>60 ml/min/1.73 sqM) Glucose (74-99) mg/dL Calcium (8.4-10.2) mg/dL Total Bilirubin (0.2-1.3) mg/dL AST (17-59) U/L ALT (4-49) U/L Alkaline Phosphatase (38-126) U/L Troponin I <0.012 (0.000-0.034) ng/mL Total Protein (6.3-8.2) g/dL Albumin (3.5-5.0) g/dL Disposition Clinical Impression: Neurological symptoms, Dizziness, Abdominal pain Disposition: ADMITTED IP TO THIS HOSP Condition: Good Is patient prescribed a controlled substance at d/c from ED?: No Time of Disposition: 15:55
[2020-03-15 12:18] LABS: Basophils # (A) 0.1 k/uL (0-0.2); Basophils % (A) 1 %; Eosinophils # (A) 0.1 k/uL (0-0.7); Eosinophils % (A) 1 %; HCT 48.8 % (39.0-53.0); HGB 16.1 gm/dL (13.0-17.5); Lymphocytes # (A) 2.2 k/uL (1.0-4.8); Lymphocytes % (A) 36 %; MCH 31.3 pg (25.0-35.0); MCHC 33.1 g/dL (31.0-37.0); MCV 94.7 fL (80.0-100.0); Mean Platelet Volume 9.1; Monocytes # (A) 0.4 k/uL (0-1.0); Monocytes % (A) 7 %; Neutrophils # (A) 3.2 k/uL (1.3-7.7); Neutrophils % (A) 52 %; Platelet Count 200 k/uL (150-450); RBC 5.15 m/uL (4.30-5.90); RDW 13.4 % (11.5-15.5); WBC 6.2 k/uL (3.8-10.6)
[2020-03-15 12:28] LABS: ALT 30 U/L (4-49); AST 32 U/L (17-59); African American GFR (CKD) >90 (>60 ml/min/1.73 sqM); Albumin 4.7 g/dL (3.5-5.0); Alkaline Phosphatase 107 U/L (38-126); Anion Gap 8 mmol/L; Blood Urea Nitrogen 15 mg/dL (9-20); Calcium 9.6 mg/dL (8.4-10.2); Carbon Dioxide 25 mmol/L (22-30); Chloride 105 mmol/L (98-107); Glucose 83 mg/dL (74-99); INR 0.9 (<1.2); Non-African American GFR(CKD) >90 (>60 ml/min/1.73 sqM); Partial Thromboplastin Time 26.4 sec (22.0-30.0); Potassium 4.6 mmol/L (3.5-5.1); Prothrombin Time 9.9 sec (9.0-12.0); Sodium 138 mmol/L (137-145); Total Bilirubin 0.6 mg/dL (0.2-1.3); Total Protein 7.7 g/dL (6.3-8.2)
--- NOTE | 2020-03-15 12:42 | XR ---
EXAMINATION TYPE: XR chest 2V DATE OF EXAM: 03/15/2020 CLINICAL HISTORY: Dizziness. Chest pain. TECHNIQUE: Frontal and lateral views of the chest are obtained. COMPARISON: None FINDINGS: The lungs are hyperexpanded with flattening of the hemidiaphragms and prominence of the re trosternal clear space. The cardiomediastinal silhouette is within normal limits for size. Pulmonary vasculature is normal. There is no focal air space opacity, pleural effusion, or pneumothorax seen. T he osseous structures are intact. IMPRESSION: 1. Hyperexpanded lungs. Recommend clinical correlation for emphysematous changes. 2. No focal consolidation.
--- NOTE | 2020-03-15 12:43 | CT ---
EXAMINATION TYPE: CT brain wo con DATE OF EXAM: 03/15/2020 COMPARISON: 05/09/2019 HISTORY: Headache, stroke suspected CT DLP: 1066.4 mGycm Automated exposure control for dose reduction was used. FINDINGS: Ventricular system is midline and there is no evidence of acute hemorrhage or mass effect. Calvarium intact. Intracranial atherosclerotic changes noted. Ventricular system compatible with the patient's age. Faint low-attenuation within the white matter is nonspecific but most typical remote microvascul ar ischemia. IMPRESSION: NONSPECIFIC WHITE MATTER CHANGES MOST TYPICAL OF REMOTE IS A NEW WITH NO ACUTE INTRACRANIAL HEMORRHAG E OR MASS EFFECT.
[2020-03-15] MEDS ORDERED: NALOXONE 0.4 MG/ML 1 ML VIAL IV PRN (14:23)
[2020-03-15] MEDS ORDERED: ACETAMINOPHEN TAB 325 MG TAB PO PRN (14:23)
[2020-03-15] MEDS ORDERED: ONDANSETRON 4 MG/2 ML VIAL IVP PRN (14:23)
[2020-03-15] MEDS: SODIUM CHLORIDE 0.9% 1,000 ML IV SCH (14:52)
--- NOTE | 2020-03-15 14:55 | CT ---
EXAMINATION TYPE: CT angio head neck DATE OF EXAM: 03/15/2020 HISTORY: Stroke acute onset neurologic deficit. COMPARISON: NONE CT DLP: 491.7 mGycm. Automated Exposure Control for Dose Reduction was Utilized. TECHNIQUE: CTA scan of the head and neck are performed with IV Contrast, patient injected with 65 mL of Isovue 370, axial images are obtained, coronal and sagittal reformatted images are reviewed. Thre e-D reconstructed images are created on an independent workstation and reviewed. FINDINGS: Carotid/Vascular Structures: Four-vessel origin from the aortic arch. Mild to moderate calcified plaq ue in the arch. Normal origin right common carotid artery from brachiocephalic artery. Moderate calci fied plaque right carotid bulb extending into proximal internal and external carotid arteries without significant stenosis. Distal to this there is noncalcified plaque causing more significant stenosis with luminal diameter narrowing to 2.4 mm in distal reconstitution through 4.1 mm. Remainder of right internal carotid artery shows moderate to severe calcified plaque supraclinoid segment. External car otid artery shows no significant stenosis. [id number] calcified plaque left carotid bulb extending into proximal internal carotid artery without significant stenosis. Patent external carotid artery without significant plaque or stenosis. Moderate to severe calcified plaque or clinoid segment distal left internal carotid artery. Common c arotid artery shows no significant plaque or stenosis. Dominant right vertebral artery. Vertebral arteries patent to basilar junction. Hypoplastic left P1 s egment with filling of the P2 segment due to patent posterior communicating artery. Hypoplastic right posterior communicating artery. No significant focal stenosis or aneurysmal change in the posterior circulation. Patent anterior making artery. No significant focal stenosis or aneurysmal changes seen. Other: Mild to moderate spurring and disc space narrowing C3-C4 and C5-C6 along with C6 and C7 levels . Peripheral calcified nodule or granuloma right upper lobe image 22. IMPRESSION: 1. Moderate to severe plaque bilateral carotid bulb level without hemodynamically significant stenosi s. Focal noncalcified plaque proximal right internal carotid artery causing stenosis approaching but not 50%. 2. No aneurysmal change or significant focal stenosis at level of [place] of [place].
[2020-03-15] MEDS: Acetaminophen-Codeine 300-30mg TAB PO PRN (17:59)
[2020-03-15] MEDS: ATORVASTATIN 40 MG TAB PO SCH (20:00)
[2020-03-15] MEDS: ASPIRIN 325 MG TAB PO SCH (20:00)
[2020-03-15] MEDS: HYDROmorphone 0.5 MG/0.5 ML SYRINGE IVP PRN (20:40)
[2020-03-15] MEDS: HEPARIN SODIUM,PORCINE 5,000 UNIT/ML 1 ML VIAL SQ SCH (20:41)
[2020-03-15] MEDS ORDERED: LISINOPRIL PO SCH (21:00)
--- NOTE | 2020-03-15 22:15 | HP ---
HISTORY AND PHYSICAL DATE OF SERVICE: 03/15/2020 CHIEF COMPLAINTS: Weakness and dizziness and abdominal discomfort. HISTORY OF PRESENT ILLNESS: This 65-year-old gentleman with a past medical history of multiple medical problems, including atrial fibrillation, CAD, COPD, hypertension, hyperlipidemia, history of myocardial infarction, apparently not being followed by any primary physician in the outpatient setting, presented with dizziness and weakness and abdominal pain. The patient is more weak on the left side. The patient had acute pain from the left hand, according to him. The weakness was going on for one week. The pain was also intermittent in the right upper quadrant. The patient had some nausea. Because of the increasing difficulties, the patient came to [facility] and was admitted for further evaluation and treatment. There is no history of any fever, rigors. No history of headache, loss of consciousness, seizures at this time. A COVID-19 test is being ordered. A CT scan of the brain which was done at the time of admission showed evidence of nonspecific white matter changes, most typical of remote or new, with no acute intracranial defects. CT angio showed significant plaque formation, especially in the right internal carotid bulb, but moderate to severe plaque formation without any hemodynamically significant stenosis, and 50% stenosis reported. No aneurysmal changes were noted in the [place]. There is no history of any fever, rigor or chills. No history of headache, loss of consciousness, seizures. PAST MEDICAL HISTORY: History of atrial fibrillation, CAD, COPD, hypertension, hyperlipidemia, history of myocardial infarction. HOME MEDICATIONS: Lisinopril at bedtime. ALLERGIES: PENICILLIN. FAMILY HISTORY: No history of heart disease or strokes in the family. SOCIAL HISTORY: History of smoking, continued ongoing. REVIEW OF SYSTEMS: ENT: No diminished hearing. No diminished vision. But complains of neck pain. CARDIOVASCULAR SYSTEM: No angina, palpitations. RESPIRATORY SYSTEM: No cough, hemoptysis. GI: No nausea, vomiting. : No dysuria or retention. NERVOUS SYSTEM: As mentioned earlier. ALLERGY/IMMUNOLOGY: No asthma, hayfever. MUSCULOSKELETAL: As mentioned earlier. HEMATOLOGY/ONCOLOGY: No history of anemia. ENDOCRINE: No history of diabetes, hypothyroidism. CONSTITUTIONAL: As mentioned earlier. DERMATOLOGY: Negative. RHEUMATOLOGY: Negative. PSYCHIATRY: As mentioned earlier. PHYSICAL EXAMINATION: Patient alert and oriented x3. Pulse 64, blood pressure 158/82, respiration 18, temperature 98.1, pulse ox 97% on room air. HEENT: Conjunctivae normal. Oral mucosa moist. NECK: No jugular venous distention. No carotid bruit. No lymph node enlargement. Neck movements are slightly painful. CARDIOVASCULAR SYSTEM: S1, S2 muffled. No S3. No S4. RESPIRATORY SYSTEM: Breath sounds diminished at the bases. No rhonchi. No crackles. ABDOMEN: Soft, non-tender. No mass palpable. LEGS: No edema. No swelling. NERVOUS SYSTEM: Higher functions as mentioned earlier. Moves all 4 limbs. No focal motor or sensory deficit. Generalized weakness and left-sided cerebellar signs also present. LYMPHATICS: No lymph node palpable in neck, axillae or groin. SKIN: No ulcer, rash, bleeding. JOINTS: No active deforming arthropathy. LABS: CBC within normal limits. CMP within normal limits. ASSESSMENT: 1. Weakness with possible acute stroke. Rule out acute cerebellar stroke on the left side. 2. White matter changes, multiple. Rule out multiple sclerosis. 3. History of atrial fibrillation, paroxysmal. 4. History of noncompliance. 5. History of coronary artery disease. 6. Chronic obstructive pulmonary disease. 7. Hypertension. 8. Hyperlipidemia. 9. History of myocardial infarction. 10.Coronary artery disease, stent. 11.History of depression. 12.History of continued ongoing nicotine dependence. 13.History of past suicidal attempts. 14.FULL CODE. RECOMMENDATIONS AND DISCUSSION: In this 65-year-old gentleman who presented with multiple complex medical issues, at this time we will monitor the patient closely, continue the current medications. Continue symptomatic treatment. I would recommend antiplatelet agents, Lipitor. Check fasting lipids. Neuro checks. Neurology evaluation. Full neurovascular workup. Two-D echo with Doppler. Otherwise, I would also recommend MRI of the brain. Importance of compliance also noted. I would recommend a cardiology consultation as well. Once again, guarded prognosis because of multiple complex medical issues. Further recommendations to follow. I would recommend that the patient follow up with a primary physician as well. MMODL / IJN: [id number] / MTDD
[2020-03-16] MEDS: HYDROmorphone 0.5 MG/0.5 ML SYRINGE IVP PRN ×5 (00:52→20:47)
[2020-03-16 03:28] LABS: Cholesterol 215 mg/dL (<200); HDL Cholesterol 34 mg/dL (40-60); LDL Cholesterol,Calculated 133 mg/dL (0-99); Triglycerides 238 mg/dL (<150)
[2020-03-16 05:54] LABS: Appearance,Urine Clear (Clear); Bilirubin,Urine Negative (Negative); Blood,Urine Negative (Negative); Color,Urine Yellow; Glucose,Urine (UA) Negative (Negative); Ketones,Urine Negative (Negative); Leukocyte Esterase,Urine Negative (Negative); Nitrite,Urine Negative (Negative); PH, Urine 5.5 (5.0-8.0); Protein,Urine Negative (Negative); Specific Gravity,Urine 1.026 (1.001-1.035); Urobilinogen,Urine <2.0 mg/dL (<2.0)
[2020-03-16] MEDS: SODIUM CHLORIDE 0.9% 1,000 ML IV SCH (06:14)
[2020-03-16] MEDS: ATORVASTATIN 40 MG TAB PO SCH (06:49)
[2020-03-16] MEDS: ASPIRIN 325 MG TAB PO SCH (06:50)
[2020-03-16] MEDS: HEPARIN SODIUM,PORCINE 5,000 UNIT/ML 1 ML VIAL SQ SCH ×2 (06:50→20:48)
[2020-03-16] MEDS: NICOTINE 14MG/24HR PATCH TRANSDERM SCH (06:50)
[2020-03-16] MEDS ORDERED: PANTOPRAZOLE 40 MG TABLET PO SCH (07:30)
--- NOTE | 2020-03-16 09:52 | MR ---
EXAMINATION TYPE: MR brain wo/w con DATE OF EXAM: 03/16/2020 COMPARISON: CT 03/15/2020 HISTORY: Left sided Weakness TECHNIQUE: Multiplanar, multisequence images of the brain and brainstem is performed without and with IV contras t, utilizing 7.5 mL intravenous Gadavist . FINDINGS: Diffusion weighted images demonstrate no evidence of a recent infarct or other diffusion ab normality. A mild to moderate generalized degenerative change. Nonspecific areas of abnormal signal a re seen scattered throughout the white matter bilaterally and most compatible with remote microvascul ar ischemia. No midline shift or mass effect. Vague enhancement in the left cerebellum likely is vascular or artif actual. Short-term follow-up could be obtained for confirmation. Midline structures demonstrate normal morphology. The craniocervical junction appears within normal limits. Post contrast images demonstrate no abnormal enhancement. The dural venous sinuses appear pa tent. Changes of chronic sinusitis are noted. Small lymph nodes are seen within the parotid gland samantha aterally. IMPRESSION: 1. No evidence of acute ischemia. 2. Degenerative and nonspecific white matter changes most typical of remote microvascular ischemia
[2020-03-16] MEDS: MORPHINE SULFATE 4 MG/ML SYRINGE IV PRN ×2 (10:51→23:03)
[2020-03-16] MEDS: BUTALB/APAP/CAFF 50-325-40MG TAB PO PRN (12:07)
--- NOTE | 2020-03-16 12:51 | P.CRDCN ---
History of Present Illness Consult date: 03/16/20 History of present illness: This is a 65-year-old gentleman who was admitted to the hospital with complaints of generalized weakness and also focal weakness involving the left upper arm may be left leg. Patient is vague in his description of the discomfort. He is also complaining of being dizzy and lightheaded and associated with headache. This patient has a dual citizenship and spends time, both in [place] and also in [place]. She claimed that he was working as a senior field service engineer in [place] . He was sent to [facility] on his job duty, where he sustained an episode of " myocardial infarction". Patient claimed that he had a stent and he was taking medications that include lisinopril, Lipitor, aspirin and Plavix. Patient could not afford the medication and did not take any of them. He claims that he is homeless. He came to put her on trying to cross to [place]. At the time of my examination patient is complaining of headache and mild dizziness. Did not complain of any chest pain. His EKG showed sinus rhythm. There is vague history that he may have atrial fibrillation. Nothing is documented so far. Had a MRI scan showed some evidence of possible remote ischemia. CT angiogram showed moderate to severe plaque with noncritical stenosis. Neurology evaluation is pending. From cardiac standpoint I will resume his medication including lisinopril, beta dee dee and lipid-lowering agent. Echocardiogram showed normal LV function. We'll monitor him for any evidence of atrial fibrillation. If none is documented, outpatient event monitor could be considered. Patient also may benefit from outpatient stress test. Thank you Review of Systems As per the chart Past Medical History Past Medical History: Atrial Fibrillation, Coronary Artery Disease (CAD), COPD, Hyperlipidemia, Hypertension, Myocardial Infarction (ME) Additional Past Medical History / Comment(s): Pt states he had a ME approximately 1.5 yrs ago while in the [facility]/stented, murmur, chronic cervical pain. Last Myocardial Infarction Date:: 2017 History of Any Multi-Drug Resistant Organisms: None Reported Past Surgical History: Appendectomy, Heart Catheterization With Stent, Tonsillectomy Past Anesthesia/Blood Transfusion Reactions: No Reported Reaction Date of Last Stent Placement:: 2017 Smoking Status: Light tobacco smoker - Past Family History Father Family Medical History: No Reported History Additional Family Medical History / Comment(s): Father in a train crash in his 40s or 50s. Mother Family Medical History: No Reported History Additional Family Medical History / Comment(s): Mother in a train crash in her 40s or 50s. Medications and Allergies Home Medications Medication Instructions Recorded Confirmed Type Lisinopril (Unknown Dose) 1 tab PO HS 03/15/20 03/15/20 History Allergies Allergy/AdvReac Type Severity Reaction Status Date / Time Penicillins Allergy Anaphylaxis Verified 03/15/20 13:51 Physical Exam Vitals: Vital Signs Temp Pulse Pulse Resp BP BP Pulse Ox 03/16/20 07:00 97.7 F 55 L 18 128/79 97 03/16/20 06:45 55 L 18 03/16/20 03:34 16 03/16/20 02:20 97.6 F 61 121/64 97 03/16/20 00:00 16 03/15/20 19:00 62 18 03/15/20 18:57 97.9 F 55 L 156/77 98 03/15/20 18:05 98.1 F 64 18 158/82 97 03/15/20 17:37 66 18 129/92 98 03/15/20 17:00 66 18 129/92 98 03/15/20 16:00 18 03/15/20 15:00 18 03/15/20 14:00 63 18 142/73 98 03/15/20 13:00 18 Intake and Output 03/15/20 03/16/20 03/16/20 22:59 06:59 14:59 Output Total 400 Balance -400 Output: Urine 400 Other: Voiding Method Urinal Urinal # Voids 1 Weight 79.379 kg 79.379 kg GENERAL EXAM: Patient is alert and oriented and doesn't appear to be in any acute distress HEENT: Normocephalic. Normal reaction of pupils, equal size, normal range of extraocular motion. No erythema or exudates in the throat. NECK: No masses, no nuchal rigidity. CHEST: No chest wall deformity. LUNGS: Equal air entry with no crackles or wheeze. HEART: S1 and S2 normal with no audible mumurs or gallops. Regular rhythm, femorals equal on both sides.. ABDOMEN: No hepatosplenomegaly, normal bowel sounds, no guarding or rigidity. SKIN: No rashes CENTRAL NERVOUS SYSTEM: No focal deficits. EXTREMITIES: No cyanosis, clubbing or edema. Results 03/15/20 11:37 03/15/20 11:37 Cardiac Enzymes 03/15/20 Range/Units 11:37 Troponin I <0.012 (0.000-0.034) ng/mL Lipids 03/15/20 Range/Units 11:37 Triglycerides 238 H (<150) mg/dL Cholesterol 215 H (<200) mg/dL HDL Cholesterol 34 L (40-60) mg/dL Current Medications Generic Name Dose Route Start Last Admin Trade Name Freq PRN Reason Stop Dose Admin Acetaminophen 650 mg 03/15/20 14:23 Tylenol Tab PO Q6HR PRN Mild Pain or Fever > 100.5 Acetaminophen/Butalbital/Caffeine 1 each 03/16/20 11:58 03/16/20 12:07 Fioricet 50-325-40 PO 1 each Q6HR PRN Administration Headache Acetaminophen/Codeine Phosphate 1 each 03/15/20 14:23 03/15/20 17:59 Tylenol #3 PO 1 each Q4HR PRN Administration Moderate Pain Aspirin 81 mg 03/17/20 09:00 Aspirin PO DAILY [facility] Atorvastatin Calcium 40 mg 03/15/20 19:45 03/16/20 06:49 Lipitor PO 40 mg DAILY CATRACHITA Administration Heparin Sodium (Porcine) 5,000 unit 03/15/20 21:00 03/16/20 06:50 Heparin SQ 5,000 unit Q12HR CATRACHITA Administration Hydromorphone HCl 0.5 mg 03/15/20 14:23 03/16/20 06:14 Dilaudid IVP 0.5 mg Q3HR PRN Administration Moderate Pain Sodium Chloride 1,000 mls @ 75 mls/hr 03/15/20 14:30 03/16/20 06:14 Saline 0.9% IV 75 mls/hr .[id number] CATRACHITA Administration Lisinopril 5 mg 03/16/20 12:45 Zestril PO DAILY [facility] Lorazepam 0.5 mg 03/15/20 14:23 Ativan IV Q6HR PRN Anxiety Metoprolol Tartrate 25 mg 03/16/20 12:45 Lopressor PO BID CATRACHITA Morphine Sulfate 4 mg 03/15/20 14:23 03/16/20 10:51 Morphine Sulfate (Inj) IV 4 mg Q4HR PRN Administration Severe Pain Naloxone HCl 0.2 mg 03/15/20 14:23 Narcan IV Q2M PRN Opioid Reversal Nicotine 1 patch 03/16/20 09:00 03/16/20 06:50 Habitrol 14mg/24hr Patch TRANSDERM Not Given DAILY CATRACHITA Ondansetron HCl 4 mg 03/15/20 14:23 Zofran IVP Q8HR PRN Nausea And Vomiting Pantoprazole Sodium 40 mg 03/16/20 07:30 03/16/20 06:49 Protonix PO 40 mg [id number] CATRACHITA Administration Intake and Output 03/15/20 03/16/20 03/16/20 22:59 06:59 14:59 Output Total 400 Balance -400 Output: Urine 400 Other: Voiding Method Urinal Urinal # Voids 1 Weight 79.379 kg 79.379 kg Patient Weight 03/17/20 06:59 Weight 79.379 kg 03/15/20 11:37 03/15/20 11:37 EKG Interpretations (text) Sinus rhythm Assessment and Plan (1) History of myocardial infarction Current Visit: Yes Status: Acute Code(s): I25.2 - OLD MYOCARDIAL INFARCTION SNOMED Code(s): 804055877 (2) Dizziness Current Visit: Yes Status: Acute Code(s): R42 - DIZZINESS AND GIDDINESS SNOMED Code(s): 785025648 (3) History of coronary artery stent placement Current Visit: Yes Status: Acute Code(s): Z95.5 - PRESENCE OF CORONARY ANGIOPLASTY IMPLANT AND GRAFT SNOMED Code(s): 934122656 (4) Hypercholesterolemia Current Visit: Yes Status: Acute Code(s): E78.00 - PURE HYPERCHOLESTEROLEMIA, UNSPECIFIED SNOMED Code(s): 96439459 (5) CVA (cerebral vascular accident) Current Visit: Yes Status: Acute Code(s): I63.9 - CEREBRAL INFARCTION, UNSPECIFIED SNOMED Code(s): 540826099 Plan: We'll resume his medication including lisinopril, beta dee dee and lipid- lowering agent and aspirin. Echocardiogram is already done. Await further neurology evaluation. If necessary, consider outpatient monitoring to rule out any paroxysmal atrial fibrillation. Patient to be on inpatient monitor
[2020-03-16] MEDS: METOPROLOL TARTRATE 25 MG TAB PO SCH ×2 (13:20→22:25)
[2020-03-16] MEDS: lisinopriL 5 MG TAB PO SCH (13:20)
[2020-03-16] MEDS: Acetaminophen-Codeine 300-30mg TAB PO PRN (14:55)
[2020-03-16] MEDS: PANTOPRAZOLE 40 MG TABLET PO SCH (15:12)
[2020-03-16] MEDS: KETOROLAC 30 MG/ML 1 ML VIAL IVP PRN (15:14)
[2020-03-16] MEDS ORDERED: diphenhydrAMINE 50 MG/ML 1 ML VIAL IVP STA (15:44)
[2020-03-16] MEDS ORDERED: PROCHLORPERAZINE 10 MG TAB PO PRN (15:44)
--- NOTE | 2020-03-16 16:01 | PN ---
PROGRESS NOTE DATE OF SERVICE: 03/16/2020 This is a 65-year-old gentleman who was admitted with weakness and possible acute stroke, is being closely monitored. The patient has some incoordination yesterday, brain MRI did not show any active stroke at this time. Cardiology following the patient closely and recommended to continue the medication lisinopril, beta blockers and lipid lowering agents and aspirin also. No chest pain. No palpitation. The most recent EKG showed normal sinus rhythm. PHYSICAL EXAMINATION: Alert and oriented. Pulse 55, blood pressure 124/70, respiration 18, temperature 97.7, pulse ox 97% on room air. HEENT: Conjunctivae normal. NECK: No jugular venous distension. CARDIOVASCULAR SYSTEM: S1, S2 muffled. RESPIRATORY SYSTEM: Breath sounds diminished at the bases, no rhonchi, no crackles. ABDOMEN: Soft. LEGS: No edema, no swelling. NERVOUS SYSTEM: No focal deficits. LABS: CBC, BMP noted, cholesterol is 250, LDL is 133. ASSESSMENT: 1. Weakness and possible acute stroke, possibly acute transient ischemic attack involving the right hemisphere causing left-sided weakness. 2. White matter changes multiple, rule out multiple sclerosis. 3. History of possible atrial fibrillation paroxysmal. 4. History of noncompliance. 5. History of coronary artery disease. 6. Chronic obstructive pulmonary disease. 7. Hypertension. 8. History of myocardial infarction. 9. History of coronary artery disease, stent. 10.History of depression. 11.History of continued ongoing nicotine dependence. 12.History of past suicidal attempts. 13.FULL CODE. RECOMMENDATION: Recommend to continue current medications, symptomatic treatment. Otherwise at this time continue with antiplatelet agents, Lipitor. Needs monitoring to document further atrial fibrillation per Cardiology, otherwise continue to monitor. Resume the home medications. Guarded prognosis. Further recommendations to follow. MMODL / IJN: [id number] /
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
[2020-03-16] MEDS: CLOPIDOGREL 75 MG TAB PO SCH (20:48)
[2020-03-16] MEDS: GABAPENTIN 100 MG CAP PO SCH (22:55)
[2020-03-17] MEDS: HYDROmorphone 0.5 MG/0.5 ML SYRINGE IVP PRN ×4 (02:46→21:24)
--- NOTE | 2020-03-17 06:35 | P.PN ---
Subjective Progress Note Date: 03/17/20 Principal diagnosis: Possible CVA This is a very pleasant 65-year-old gentleman with history of coronary artery disease and prior stent placement was performed out of this down, the details are unknown, as well as history of hypertension and dyslipidemia who was admitted to the hospital with symptoms of headache as well as dizziness as well as left sided weakness. The patient was diagnosed was possible TIA/CVA. Neurology was consulted and continues to follow up with the patient. Early this morning and was called regarding a rhythm strip on the telemetry showing possible ST segment elevation GA. 12 please EKG was performed and revealed sinus rhythm with about [address] segment E patient in the anteroseptal leads but the patient heart rate was in the 40s. Metoprolol was held. The repeated EKG continues to show the same finding. The EKG changes are definitely more prominent compared to his EKG when he presented to the hospital yesterday. I came in and evaluated the patient. The patient clinically is doing well. He is completely asymptomatic. He denies any symptoms of chest pain, chest discomfort, neck pain, shoulder sprain, back pain, or epigastric pain. No right or lower upper extremity pain as well. No shortness of breath. No sweating. And no dizziness or lightheadedness at this point. When he presented to the hospital he had one troponin and that came in to be unremarkable. I'm going to repeat 2 more sets of troponin on him. Also I am going to obtain an echocardiogram was Doppler. We'll continue following up with the patient. We'll watch for any symptoms of chest pain or chest discomfort. I would advise to keep the patient overnight for 1 more day. Objective - Vital Signs Vital signs: Vital Signs Temp 98.2 F 03/17/20 01:05 Pulse 49 L 03/17/20 01:05 Resp 17 03/17/20 03:45 BP 123/64 03/17/20 01:05 Pulse Ox 99 03/17/20 01:05 Intake & Output 03/16/20 03/16/20 03/17/20 06:59 18:59 06:59 Output Total 400 400 Balance -400 -400 Weight 79.379 kg Output: Urine 400 400 Other: Voiding Method Urinal Urinal # Voids 1 - Constitutional General appearance: Present: no acute distress - Respiratory Respiratory: bilateral: CTA - Cardiovascular Rhythm: regular Heart sounds: normal: S1, S2 - Labs CBC & Chem 7: 03/15/20 11:37 03/15/20 11:37 Assessment and Plan Assessment: Assessment Symptoms of headache as well as dizziness and lightheadedness and left side S Coronary artery disease and prior stenting of unknown details Abnormal EKG concerning for ischemic changes but the patient is asymptomatic Sinus bradycardia Plan Continue the current medical regimen included dual antiplatelet therapy along with a statin Decrease the dose of metoprolol Obtain serial cardiac enzymes Obtain an echocardiogram was Doppler Consider monitoring the patient for 1 more day Follow-up with the patient
[2020-03-17] MEDS: CLOPIDOGREL 75 MG TAB PO SCH (07:40)
[2020-03-17] MEDS: GABAPENTIN 100 MG CAP PO SCH ×3 (07:40→21:24)
[2020-03-17] MEDS: PANTOPRAZOLE 40 MG TABLET PO SCH (07:40)
[2020-03-17] MEDS: HEPARIN SODIUM,PORCINE 5,000 UNIT/ML 1 ML VIAL SQ SCH ×2 (07:40→21:24)
[2020-03-17] MEDS: ASPIRIN 81 MG PO SCH (07:40)
[2020-03-17] MEDS: lisinopriL 5 MG TAB PO SCH (07:40)
[2020-03-17] MEDS: ATORVASTATIN 40 MG TAB PO SCH (07:40)
[2020-03-17] MEDS: NICOTINE 14MG/24HR PATCH TRANSDERM SCH (07:41)
[2020-03-17 08:18] LABS: T4, Free (Free Thyroxine) 0.98 ng/dL (0.78-2.19)
[2020-03-17 08:35] LABS: C Reactive Protein <5.0 mg/L (<10.0)
[2020-03-17] MEDS ORDERED: METOPROLOL TARTRATE 25 MG TAB PO SCH (09:00)
[2020-03-17 12:26] LABS: Hemoglobin A1C 5.9 % (4.0-6.0)
[2020-03-17] MEDS: Acetaminophen-Codeine 300-30mg TAB PO PRN (15:02)
[2020-03-17] MEDS: BUTALB/APAP/CAFF 50-325-40MG TAB PO PRN (15:02)
--- NOTE | 2020-03-17 15:21 | P.PN ---
Subjective Progress Note Date: 03/17/20 The patient is a 65-year-old male with past medical history of coronary artery disease, hypertension, and dyslipidemia, who presented for new onset of dizziness, headache, and left-sided weakness. On exam today, he is currently experiencing 10 over 10 pain. He states he's had a headache for the last week and a half. He states Tylenol with Codeine does temporarily relieve some of this pain, however he has not got any complete relief. He denies any additional dizziness or lightheadedness. He also denies any chest pain, chest pressure, or shortness of breath. GENERAL: Well-appearing, well-nourished and in moderate distress. Patient is currently in pain. NECK: Supple without JVD or thyromegaly. LUNGS: Breath sounds clear to auscultation bilaterally. Respiration equal and u nlabored. No wheezes, rales or rhonchi. HEART: Regular rate and rhythm without murmurs, rubs or gallops. S1 and S2 heard. EXTREMITIES: Normal range of motion, no edema. No clubbing or cyanosis. Leticia pheral pulses intact and strong. Vitals: Blood pressure 145/74, heart rate 51, temperature 98.0 Fahrenheit, respirations 19 Labs: TSH 9.7, CRP less than 5, ESR 3, and hemoglobin A1c 5.9. Impression: #1 dizziness, now resolved #2 migraine headache, unknown etiology #3 coronary artery disease, status post stent #4 hypercholesterolemia, started on statin therapy #5 hypertension #6 bradycardia, currently asymptomatic #7 left-sided weakness, possible subacute/chronic CVA #8 prediabetes, A1c 5.9 #9 subclinical hypothyroidism Plan: Continue dual antiplatelet therapy at this time. Reduce metoprolol to 12-1/2 mg twice a day. Defer pain management to primary care/neurology. Continue aggressive risk factor modification. Follow up outpatient for further testing if needed. Objective - Vital Signs Vital signs: Vital Signs Temp 98.0 F 03/17/20 07:00 Pulse 51 L 03/17/20 08:00 Resp 19 03/17/20 08:00 BP 145/74 03/17/20 07:00 Pulse Ox 99 03/17/20 07:00 Intake & Output 03/16/20 03/17/20 03/17/20 18:59 06:59 18:59 Output Total 400 Balance -400 Weight 79.379 kg Output: Urine 400 Other: Voiding Method Urinal Urinal # Voids 2 - Labs CBC & Chem 7: 03/15/20 11:37 03/15/20 11:37 Labs: Abnormal Lab Results - Last 24 Hours (Table) 03/17/20 Range/Units 06:39 TSH 9.780 H (0.465-4.680) mIU/L
[2020-03-17 18:04] LABS: Folate, Serum 9.6 ng/mL
[2020-03-17] MEDS: METOPROLOL TARTRATE 12.5 MG TAB PO SCH (21:25)
[2020-03-18] MEDS: lisinopriL 5 MG TAB PO SCH (07:33)
[2020-03-18] MEDS: CLOPIDOGREL 75 MG TAB PO SCH (07:33)
[2020-03-18] MEDS: METOPROLOL TARTRATE 12.5 MG TAB PO SCH ×2 (07:33→21:11)
[2020-03-18] MEDS: ATORVASTATIN 40 MG TAB PO SCH (07:33)
[2020-03-18] MEDS: PANTOPRAZOLE 40 MG TABLET PO SCH (07:33)
[2020-03-18] MEDS: ASPIRIN 81 MG PO SCH (07:33)
[2020-03-18] MEDS: GABAPENTIN 100 MG CAP PO SCH ×3 (07:33→21:11)
[2020-03-18] MEDS: NICOTINE 14MG/24HR PATCH TRANSDERM SCH (07:34)
[2020-03-18] MEDS: HEPARIN SODIUM,PORCINE 5,000 UNIT/ML 1 ML VIAL SQ SCH ×2 (07:34→21:11)
[2020-03-18] MEDS: Acetaminophen-Codeine 300-30mg TAB PO PRN ×4 (07:41→23:29)
[2020-03-18] MEDS: BUTALB/APAP/CAFF 50-325-40MG TAB PO PRN ×3 (07:41→21:12)
[2020-03-18] MEDS: HYDROmorphone 0.5 MG/0.5 ML SYRINGE IVP PRN (10:58)
--- NOTE | 2020-03-18 11:58 | P.PN ---
Subjective Progress Note Date: 03/17/20 Principal diagnosis: Left-sided weakness; possible TIA Intractable headache CAD with recent stenting 65-year-old male with past medical history of coronary artery disease, [place], and dyslipidemia, who presented for new onset of dizziness, headache, and left-sided weakness. On exam today, he is currently experiencing 10 over 10 pain. He states he's had a headache for the last week and a half. He states Tylenol with Codeine does temporarily relieve some of this pain, however he has not got any complete relief. He denies any additional dizziness or lightheadedness. He also denies any chest pain, chest pressure, or shortness of breath. Objective - Vital Signs Vital signs: Vital Signs Temp 98.0 F 03/17/20 07:00 Pulse 51 L 03/17/20 08:00 Resp 19 03/17/20 08:00 BP 145/74 03/17/20 07:00 Pulse Ox 99 03/17/20 07:00 Intake & Output 03/16/20 03/17/20 03/17/20 18:59 06:59 18:59 Output Total 400 Balance -400 Weight 79.379 kg Output: Urine 400 Other: Voiding Method Urinal Urinal - Exam PHYSICAL EXAMINATION: GENERAL: The patient is alert and oriented x3, not in any acute distress. Well developed, well nourished. HEENT: Pupils are round and equally reacting to light. EOMI. No scleral icterus. No conjunctival pallor. Normocephalic, atraumatic. No pharyngeal erythema. No thyromegaly. CARDIOVASCULAR: S1 and S2 present. No murmurs, rubs, or gallops. PULMONARY: Chest is clear to auscultation, no wheezing or crackles. ABDOMEN: Soft, nontender, nondistended, normoactive bowel sounds. No palpable organomegaly. MUSCULOSKELETAL: No joint swelling or deformity. EXTREMITIES: No cyanosis, clubbing, or pedal edema. NEUROLOGICAL: Gross neurological examination did not reveal any focal deficits. SKIN: No rashes. - Labs CBC & Chem 7: 03/15/20 11:37 03/15/20 11:37 Labs: Abnormal Lab Results - Last 24 Hours (Table) 03/17/20 Range/Units 06:39 TSH 9.780 H (0.465-4.680) mIU/L Assessment and Plan Assessment: 1. Dizziness with left-sided weakness; possible TIA versus subacute/chronic CVA; resolved 2. Intractable headache; possible migraine headache; neurology is following and patient is started on Neurontin 200 mg twice a day; patient's pain remains uncontrolled; await further recommendations from neurology 3. CAD, status post stenting; cardiology is following and recommending to continue with to we'll add antiplatelet therapy; patient was bradycardic some metoprolol is decreased to 12.5 mg twice a day 4. Hypertension; Zestril 5 mg daily; metoprolol 12.5 mg twice a day 5. Hyperlipidemia; Lipitor 40 mg daily DVT prophylaxis; subcu heparin CODE STATUS; full code
--- NOTE | 2020-03-18 15:20 | P.PN ---
Subjective Progress Note Date: 03/18/20 The patient is a 65-year-old male with past medical history of coronary artery disease, hypertension, and dyslipidemia, who presented for new onset of dizziness, headache, and left-sided weakness. 03/17/2020 On exam today, he is currently experiencing 10 over 10 pain. He states he's had a headache for the last week and a half. He states Tylenol with Codeine does temporarily relieve some of this pain, however he has not got any complete relief. He denies any additional dizziness or lightheadedness. He also denies any chest pain, chest pressure, or shortness of breath. Blood pressure 145/74, heart rate 51, temperature 90.0 Fahrenheit, respiratory rate 19. Labs: TSH 9.7, CRP less than 5, ESR 3, and hemoglobin A1c 5.9 03/18/2020 On exam today, he is doing much better inregards to pain management. His headache has not completely resolved. He denies any chest discomfort, palpitations, dyspnea, or vertigo. His weakness has completely resolved. GENERAL: Well-appearing, well-nourished and in moderate distress. Patient is currently in pain. NECK: Supple without JVD or thyromegaly. LUNGS: Breath sounds clear to auscultation bilaterally. Respiration equal and unlabored. No wheezes, rales or rhonchi. HEART: Regular rate and rhythm without murmurs, rubs or gallops. S1 and S2 heard. EXTREMITIES: Normal range of motion, no edema. No clubbing or cyanosis. Peripheral pulses intact and strong. Vitals: 119/61, pulse 49, RR 16, 98.1F Impression: #1 dizziness, now resolved #2 migraine headache, unknown etiology #3 coronary artery disease, status post stent #4 hypercholesterolemia, started on statin therapy #5 hypertension #6 bradycardia, currently asymptomatic #7 left-sided weakness, possible subacute/chronic CVA #8 prediabetes, A1c 5.9 #9 subclinical hypothyroidism Plan: Continue dual antiplatelet therapy at this time. Defer pain management to primary care/neurology. Continue aggressive risk factor modification. Follow up outpatient for further testing if needed. Objective - Vital Signs Vital signs: Vital Signs Temp 98.1 F 03/18/20 14:26 Pulse 49 L 03/18/20 14:26 Resp 16 03/18/20 14:26 BP 119/61 03/18/20 14:26 Pulse Ox 98 03/18/20 14:26 Intake & Output 03/17/20 03/18/20 03/18/20 18:59 06:59 18:59 Intake Total 240 Output Total 300 Balance -60 Intake: Oral 240 Output: Urine 300 Other: Voiding Method Urinal Urinal Urinal # Voids 2 1 2 - Labs CBC & Chem 7: 03/15/20 11:37 03/15/20 11:37
--- NOTE | 2020-03-18 17:44 | P.PN ---
Subjective Progress Note Date: 03/18/20 Principal diagnosis: Left-sided weakness; possible TIA Intractable headache CAD with recent stenting 65-year-old male with past medical history of coronary artery disease, hyper[place], and dyslipidemia, who presented for new onset of dizziness, headache, and left-sided weakness. On exam today, he is currently experiencing 10 over 10 pain. He states he's had a headache for the last week and a half. He states Tylenol with Codeine does temporarily relieve some of this pain, however he has not got any complete relief. He denies any additional dizziness or lightheadedness. He also denies any chest pain, chest pressure, or shortness of breath. 03/18/2020 Patient is seen and evaluated in room at bedside; report some improvement in headache but not completely resolved Vital signs remained stable with a temperature of 98.1, pulse 49 and respirat ions 16 and blood pressure of 116/61 Patient continues to have a migraine headache; has been started on Neurontin 200 mg twice a day by neurology; await reevaluation by neurology service for further recommendations Cardiology is following and recommending to start patient on statin therapy; patient is agreeable Objective - Vital Signs Vital signs: Vital Signs Temp 98.2 F 03/18/20 07:00 Pulse 55 L 03/18/20 08:00 Resp 14 03/18/20 08:00 BP 113/58 03/18/20 07:00 Pulse Ox 95 03/18/20 07:00 Intake & Output 03/17/20 03/18/20 03/18/20 18:59 06:59 18:59 Intake Total 240 Output Total 300 Balance -60 Intake: Oral 240 Output: Urine 300 Other: Voiding Method Urinal Urinal Urinal # Voids 2 1 - Exam PHYSICAL EXAMINATION: GENERAL: The patient is alert and oriented x3, not in any acute distress. Well d eveloped, well nourished. HEENT: Pupils are round and equally reacting to light. EOMI. No scleral icterus. No conjunctival pallor. Normocephalic, atraumatic. No pharyngeal erythema. No thyromegaly. CARDIOVASCULAR: S1 and S2 present. No murmurs, rubs, or gallops. PULMONARY: Chest is clear to auscultation, no wheezing or crackles. ABDOMEN: Soft, nontender, nondistended, normoactive bowel sounds. No palpable organomegaly. MUSCULOSKELETAL: No joint swelling or deformity. EXTREMITIES: No cyanosis, clubbing, or pedal edema. NEUROLOGICAL: Gross neurological examination did not reveal any focal deficits. SKIN: No rashes. - Labs CBC & Chem 7: 03/15/20 11:37 03/15/20 11:37 Assessment and Plan Assessment: 1. Dizziness with left-sided weakness; possible TIA versus subacute/chronic CVA; resolved 2. Intractable headache; possible migraine headache; neurology is following and patient is started on Neurontin 200 mg twice a day; patient's pain remains uncontrolled; await further recommendations from neurology 3. CAD, status post stenting; cardiology is following and recommending to continue with to we'll add antiplatelet therapy; patient was bradycardic some metoprolol is decreased to 12.5 mg twice a day 4. Hypertension; Zestril 5 mg daily; metoprolol 12.5 mg twice a day 5. Hyperlipidemia; Lipitor 40 mg daily DVT prophylaxis; subcu heparin CODE STATUS; full code
[2020-03-18] MEDS: KETOROLAC 30 MG/ML 1 ML VIAL IVP PRN (21:12)
[2020-03-18] MEDS: LORazepam 2 MG/ML INJ IV PRN (21:13)
[2020-03-18] MEDS: MORPHINE SULFATE 4 MG/ML SYRINGE IV PRN (22:05)
[2020-03-19] MEDS: MORPHINE SULFATE 4 MG/ML SYRINGE IV PRN ×2 (02:12→06:13)
[2020-03-19] MEDS: BUTALB/APAP/CAFF 50-325-40MG TAB PO PRN ×2 (03:18→14:12)
[2020-03-19] MEDS: LORazepam 2 MG/ML INJ IV PRN (03:19)
[2020-03-19] MEDS: Acetaminophen-Codeine 300-30mg TAB PO PRN ×3 (03:19→14:20)
[2020-03-19 07:08] VITALS: BP 132/66; PULSE 58; RESP 18; TEMP 98.1
[2020-03-19 07:36] LABS: Basophils # (A) 0.1 k/uL (0-0.2); Basophils % (A) 1 %; Eosinophils # (A) 0.1 k/uL (0-0.7); Eosinophils % (A) 2 %; HCT 44.6 % (39.0-53.0); HGB 14.8 gm/dL (13.0-17.5); Lymphocytes # (A) 1.9 k/uL (1.0-4.8); Lymphocytes % (A) 31 %; MCH 31.5 pg (25.0-35.0); MCHC 33.2 g/dL (31.0-37.0); MCV 94.8 fL (80.0-100.0); Mean Platelet Volume 9.4; Monocytes # (A) 0.5 k/uL (0-1.0); Monocytes % (A) 8 %; Neutrophils # (A) 3.5 k/uL (1.3-7.7); Neutrophils % (A) 57 %; Platelet Count 157 k/uL (150-450); WBC 6.2 k/uL (3.8-10.6)
[2020-03-19 07:50] LABS: Potassium 5.2 mmol/L (3.5-5.1)
[2020-03-19] MEDS: NICOTINE 14MG/24HR PATCH TRANSDERM SCH (08:50)
[2020-03-19] MEDS: CLOPIDOGREL 75 MG TAB PO SCH (09:02)
[2020-03-19] MEDS: GABAPENTIN 100 MG CAP PO SCH (09:02)
[2020-03-19] MEDS: ATORVASTATIN 40 MG TAB PO SCH (09:02)
[2020-03-19] MEDS: ASPIRIN 81 MG PO SCH (09:02)
[2020-03-19] MEDS: METOPROLOL TARTRATE 12.5 MG TAB PO SCH (09:02)
[2020-03-19] MEDS: lisinopriL 5 MG TAB PO SCH (09:02)
[2020-03-19] MEDS: PANTOPRAZOLE 40 MG TABLET PO SCH (09:02)
[2020-03-19] MEDS: KETOROLAC 30 MG/ML 1 ML VIAL IVP PRN (09:03)
[2020-03-19] MEDS: HEPARIN SODIUM,PORCINE 5,000 UNIT/ML 1 ML VIAL SQ SCH (09:04)
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
--- NOTE | 2020-03-22 10:50 | ECHOF ---
Referral Reason:Left sided weakness MEASUREMENTS -------- HEIGHT: 172.7 cm WEIGHT: 79.4 kg BP: RVIDd: 3.4 cm (< 3.3) IVSd: 1.2 cm (0.6 - 1.1) LVIDd: 4.0 cm (3.9 - 5.3) LVPWd: 1.5 cm (0.6 - 1.1) IVSs: 1.4 cm LVIDs: 3.6 cm LVPWs: 1.5 cm LA Diam: 4.2 cm (2.7 - 3.8) LAESV Index (A-L): 31.36 ml/m Ao Diam: 3.0 cm (2.0 - 3.7) AV Cusp: 1.4 cm (1.5 - 2.6) MV EXCURSION: 15.618 mm (> 18.000) MV EF SLOPE: 100 mm/s (70 - 150) EPSS: 0.3 cm MV E Latrell: 0.71 m/s MV DecT: 152 ms MV A Latrell: 0.65 m/s MV E/A Ratio: 1.11 RAP: 5.00 mmHg RVSP: 31.78 mmHg FINDINGS -------- Sinus rhythm. This was a technically good study. The left ventricular size is normal. There is mild concentric left ventricular hypertrophy. Overa ll left ventricular systolic function is low-normal with, an EF between 50 - 55 %. The right ventricle is normal in size. The left atrium is mildly dilated. LA is midly dilated 29-33ml/m2. The right atrial size is normal. There is mild to moderate aortic valve sclerosis. There is no evidence of aortic regurgitation. Mild mitral regurgitation is present. Mild tricuspid regurgitation present. There is no evidence of pulmonary hypertension. There is no pulmonic regurgitation present. The aortic root size is normal. There is no pericardial effusion. CONCLUSIONS -------- 1. Sinus rhythm. 2. This was a technically good study. 3. The left ventricular size is normal. 4. There is mild concentric left ventricular hypertrophy. 5. The right ventricle is normal in size. 6. The left atrium is mildly dilated. 7. LA is midly dilated 29-33ml/m2. 8. The right atrial size is normal. 9. There is mild to moderate aortic valve sclerosis. 10. Mild mitral regurgitation is present. 11. Mild tricuspid regurgitation present. HOSPICE EDUCATOR: Marylou Vega RDCS
== END 2020-03-19 15:00 | disposition home or self-care (01) | DRG 552 ==
LOC: EC 11:00 → 4SSUR 13:31
PROVIDERS: ADMIT Hospitalist; ATTEND Hospitalist
DX: M54.81 Occipital neuralgia (principal); G43.909 Migraine, unspecified, not intractable, without status migrainosus; I25.10 Atherosclerotic heart disease of native coronary artery without angina pectoris; I10 Essential (primary) hypertension; E78.00 Pure hypercholesterolemia, unspecified; E78.5 Hyperlipidemia, unspecified; F17.210 Nicotine dependence, cigarettes, uncomplicated; F32.9 Major depressive disorder, single episode, unspecified; I48.0 Paroxysmal atrial fibrillation; R10.11 Right upper quadrant pain; J44.9 Chronic obstructive pulmonary disease, unspecified; M54.2 Cervicalgia; R00.1 Bradycardia, unspecified; E11.9 Type 2 diabetes mellitus without complications; E03.9 Hypothyroidism, unspecified; Z59.0 Homelessness; I25.2 Old myocardial infarction; Z79.899 Other long term (current) drug therapy; Z88.0 Allergy status to penicillin; Z95.5 Presence of coronary angioplasty implant and graft; Z90.89 Acquired absence of other organs; Z91.5 Personal history of self-harm; Z91.14 Patient's other noncompliance with medication regimen; Z71.6 Tobacco abuse counseling; Z84.89 Family history of other specified conditions
CPT/HCPCS: 36415; 70450; 70496; 70498; 70553; 71046; 80048; 80053; 80061; 81003; 82607; 82746; 83036; 84439; 84443; 84484; 85025; 85610; 85652; 85730; 86140; 86780; 93005; 93306; 99285

== ENCOUNTER 2020-03-21 08:36 | Observation (INO) | payer OTHER ==
[2020-03-21] MEDS ORDERED: ASPIRIN 81 MG PO STA (08:56)
[2020-03-21] MEDS ORDERED: SODIUM CHLORIDE 0.9% 1,000 ML IV STA (08:56)
[2020-03-21] MEDS ORDERED: NITROGLYCERIN OINT 1 INCH/GM PACKET TOPICAL STA (08:56)
--- NOTE | 2020-03-21 09:00 | ED ---
Chest Pain HPI - General Chief Complaint: Chest Pain Stated Complaint: chest suzanne,Dizziness Time Seen by Provider: 03/21/20 08:44 Source: patient, RN notes reviewed Mode of arrival: wheelchair Limitations: no limitations - History of Present Illness Initial Comments: This is a 65-year-old male with a prior history of heart disease he states he had a stent 2 years ago and he had a recent admission to this hospital who presents today with complaints of midsternal chest pain that radiated to his back he states this started last evening sharp in nature H/10 severity when away by itself later in the evening but recurred this morning early during the night. He has some nausea with it. No fevers chills but did have some sweats, no cough. Seems to make it worse MD Complaint: chest pain - Related Data Home Medications Medication Instructions Recorded Confirmed Acetaminophen-Codeine 300-30mg 2 tab PO Q4HR PRN 03/21/20 03/21/20 [Tylenol w/codeine #3] Butalb/APAP/Caff 50-325-40Mg 1 tab PO Q6HR PRN 03/21/20 03/21/20 [Fioricet 50-325-40] Previous Rx's Medication Instructions Recorded Aspirin 81 mg PO DAILY chew 03/19/20 Atorvastatin [Lipitor] 40 mg PO DAILY #30 tab 03/19/20 Clopidogrel [Plavix] 75 mg PO DAILY #30 tab 03/19/20 Gabapentin [Neurontin] 200 mg PO TID #6 cap 03/19/20 Metoprolol Tartrate [Lopressor] 12.5 mg PO BID #30 tab 03/19/20 Pantoprazole [Protonix] 40 mg PO AC-BRKFST #30 tablet. 03/19/20 lisinopriL [Zestril] 5 mg PO DAILY #30 tab 03/19/20 Allergies Allergy/AdvReac Type Severity Reaction Status Date / Time Penicillins Allergy Anaphylaxis Verified 03/21/20 09:10 Review of Systems ROS Statement: Those systems with pertinent positive or pertinent negative responses have been documented in the HPI. ROS Other: All systems not noted in ROS Statement are negative. EKG Findings - EKG Results: EKG: interpreted by [facility]MM[facility], sinus rhythm (Sinus rhythm of 70 and appear interval 136 QRS duration 84 QT since QTC 370/421 evidence of a RSR prime or QR pattern in V1) Past Medical History Past Medical History: Atrial Fibrillation, Coronary Artery Disease (CAD), COPD, Hyperlipidemia, Hypertension, Myocardial Infarction (NV) Additional Past Medical History / Comment(s): Pt states he had a NV approximately 1.5 yrs ago while in the [facility]/stented, murmur, chronic cervical pain. Last Myocardial Infarction Date:: 2017 History of Any Multi-Drug Resistant Organisms: None Reported Past Surgical History: Appendectomy, Heart Catheterization With Stent, Tonsillectomy Past Anesthesia/Blood Transfusion Reactions: No Reported Reaction Date of Last Stent Placement:: 2017 Past Psychological History: Depression Smoking Status: Current every day smoker, Light tobacco smoker Past Alcohol Use History: None Reported Past Drug Use History: None Reported - Past Family History Father Family Medical History: No Reported History Additional Family Medical History / Comment(s): Father in a train crash in his 40s or 50s. Mother Family Medical History: No Reported History Additional Family Medical History / Comment(s): Mother in a train crash in her 40s or 50s. General Exam - General Exam Comments Initial Comments: This is a well-developed well-nourished awake alert oriented 3 male Limitations: no limitations General appearance: alert, anxious Head exam: Present: atraumatic, normocephalic, normal inspection Eye exam: Present: normal appearance, PERRL, EOMI. Absent: scleral icterus, conjunctival injection, periorbital swelling ENT exam: Present: normal exam, mucous membranes moist Neck exam: Present: normal inspection. Absent: tenderness, meningismus, lymphadenopathy Respiratory exam: Present: normal lung sounds bilaterally. Absent: respiratory distress, wheezes, rales, rhonchi, stridor Cardiovascular Exam: Present: regular rate, normal rhythm, normal heart sounds. Absent: systolic murmur, diastolic murmur, rubs, gallop, clicks GI/Abdominal exam: Present: soft, normal bowel sounds. Absent: distended, tenderness, guarding, rebound, rigid Extremities exam: Present: normal inspection, full ROM, normal capillary refill. Absent: tenderness, pedal edema, joint swelling, calf tenderness Back exam: Present: normal inspection Neurological exam: Present: alert, oriented X3, CN II-XII intact Psychiatric exam: Present: normal affect, normal mood Skin exam: Present: warm, dry, intact, normal color. Absent: rash Course Vital Signs 03/21/20 03/21/20 03/21/20 08:38 08:56 09:00 Temperature 97.7 F Pulse Rate 87 72 72 Respiratory 18 23 16 Rate Blood Pressure 151/75 162/85 O2 Sat by Pulse 99 97 98 Oximetry 03/21/20 03/21/20 03/21/20 09:30 10:00 10:28 Temperature Pulse Rate 63 58 L 57 L Respiratory 18 Rate Blood Pressure 154/88 133/74 153/77 O2 Sat by Pulse 96 96 100 Oximetry 03/21/20 03/21/20 03/21/20 10:30 11:00 11:30 Temperature Pulse Rate 57 L 54 L 63 Respiratory 14 Rate Blood Pressure 153/77 139/72 134/71 O2 Sat by Pulse 99 98 98 Oximetry 03/21/20 12:00 Temperature Pulse Rate 61 Respiratory 16 Rate Blood Pressure 123/70 O2 Sat by Pulse 98 Oximetry - Reevaluation(s) Reevaluation #1: 03/21/20 12:15 The patient did get some relief from the medication was rendered. Procedures - Smoking Cessation Time Spent Discussing Smoking Cessation w/Patient (Minutes): 3 Patient Acknowledges Need for Cessation: Yes Chest Pain MDM - MDM Patient does have improvement in his chest pain. CAT scan was negative for PE. I did discuss the case with Dr. Ramirez. Patient be admitted for evaluation of chest pain. Disposition Clinical Impression: Unstable angina pectoris, Smoking Disposition: ADMITTED IP TO THIS [facility] Condition: Fair Referrals: None,Stated [Primary Care Provider] - 1-2 days
[2020-03-21 09:21] LABS: Basophils # (A) 0.1 k/uL (0-0.2); Basophils % (A) 1 %; Eosinophils # (A) 0.1 k/uL (0-0.7); Eosinophils % (A) 2 %; HCT 47.7 % (39.0-53.0); Lymphocytes # (A) 2.1 k/uL (1.0-4.8); Lymphocytes % (A) 34 %; MCH 31.8 pg (25.0-35.0); MCHC 33.6 g/dL (31.0-37.0); MCV 94.9 fL (80.0-100.0); Mean Platelet Volume 9.2; Monocytes # (A) 0.4 k/uL (0-1.0); Monocytes % (A) 6 %; Neutrophils # (A) 3.4 k/uL (1.3-7.7); Neutrophils % (A) 55 %; Platelet Count 185 k/uL (150-450); RBC 5.03 m/uL (4.30-5.90); RDW 13.3 % (11.5-15.5); WBC 6.2 k/uL (3.8-10.6)
--- NOTE | 2020-03-21 09:32 | XR ---
EXAMINATION TYPE: XR chest 2V DATE OF EXAM: 03/21/2020 COMPARISON: chest x-ray and CT 03/15/2020 HISTORY: Chest pain TECHNIQUE: Frontal and lateral views of the chest are obtained. FINDINGS: Prominent lung volume may be indicative of underlying COPD. There is increased AP diameter chest. Coronary artery calcifications are present. There are overlying cardiac leads. There is no foc al air space opacity, pleural effusion, or pneumothorax seen. Calcified nodule at the anterior margin of the fourth rib is again noted over the right upper lobe. The cardiac silhouette size is within no rmal limits. The osseous structures are intact. IMPRESSION: No acute cardiopulmonary process.
[2020-03-21 09:43] LABS: ALT 54 U/L (4-49); AST 39 U/L (17-59); African American GFR (CKD) >90 (>60 ml/min/1.73 sqM); Albumin 4.6 g/dL (3.5-5.0); Alkaline Phosphatase 95 U/L (38-126); Anion Gap 7 mmol/L; Blood Urea Nitrogen 16 mg/dL (9-20); Calcium 9.7 mg/dL (8.4-10.2); Carbon Dioxide 27 mmol/L (22-30); Chloride 106 mmol/L (98-107); Creatine Kinase 47 U/L (55-170); Glucose 98 mg/dL (74-99); Magnesium 1.8 mg/dL (1.6-2.3); Non-African American GFR(CKD) 88 (>60 ml/min/1.73 sqM); Potassium 4.8 mmol/L (3.5-5.1); Sodium 140 mmol/L (137-145); Total Bilirubin 0.6 mg/dL (0.2-1.3); Total Protein 7.5 g/dL (6.3-8.2)
[2020-03-21 09:46] LABS: Partial Thromboplastin Time 26.2 sec (22.0-30.0)
[2020-03-21 09:54] LABS: D-Dimer 0.67 mg/L FEU (<0.60)
--- NOTE | 2020-03-21 10:45 | CT ---
EXAMINATION TYPE: CT angio chest DATE OF EXAM: 03/21/2020 10:30 AM COMPARISON: Chest radiograph 03/21/2020 HISTORY: chest pain, dizziness, elevated d dimer CT DLP: 396.1 mGycm Automated exposure control for dose reduction was used. CONTRAST: CTA scan of the thorax is performed with IV Contrast, patient injected with 100 mL of Isovue 370, pul monary embolism protocol. 3-dimensional images were generated on a separate workstation. FINDINGS: LUNGS: Bibasilar atelectasis. There is no concerning parenchymal mass or nodule identified. Calcified pleural-based nodule of the right upper lobe. No focal consolidation. There is no pleural effusion or pneumothorax seen. The tracheobronchial tree is patent. MEDIASTINUM: There is satisfactory enhancement of the pulmonary artery and its branches, there is no CT evidence for pulmonary embolism. No thoracic aortic aneurysm. There are no greater than 1 cm zuri r or mediastinal lymph nodes. Cardiac size normal. No pericardial effusion is seen. OTHER: Degenerative changes of the thoracic spine. No adrenal nodule. IMPRESSION: 1. NO EVIDENCE OF PULMONARY EMBOLUS. 2. NO EVIDENCE OF THORACIC AORTIC ANEURYSM. 3. NO ACUTE PULMONARY PROCESS.
[2020-03-21] MEDS ORDERED: HEPARIN SODIUM,PORCINE 5,000 UNIT/ML 1 ML VIAL IV ONE (12:20)
[2020-03-21] MEDS ORDERED: NITROGLYCERIN SL TABS 0.4 MG TAB SUBLINGUAL PRN (12:20)
[2020-03-21] MEDS ORDERED: HEPARIN SOD,PORK IN 0.45% NACL 25,000 UNIT in 0.45% NACL 1 250ML.BAG IV SCH (12:30)
[2020-03-21] MEDS: SODIUM CHLORIDE 0.9% 1,000 ML IV SCH (12:42)
[2020-03-21] MEDS: BUTALB/APAP/CAFF 50-325-40MG TAB PO PRN ×2 (14:48→20:48)
[2020-03-21] MEDS: NITROGLYCERIN OINT 1 INCH/GM PACKET TOPICAL SCH ×2 (18:00→23:48)
[2020-03-21] MEDS: GABAPENTIN 100 MG CAP PO SCH ×2 (21:21→21:25)
[2020-03-21] MEDS: METOPROLOL TARTRATE 12.5 MG TAB PO SCH (21:27)
--- NOTE | 2020-03-22 01:23 | P.HPIM ---
History of Present Illness H&P Date: 03/21/20 Chief Complaint: chest pain Patient is a 55-year-old male with a known history of coronary artery disease with history of stent placement about 1/2-year ago, , COPD, hypertension, hyperlipidemia, history of NM, history of CVA with left-sided weakness and currently everyday smoker came to ER with complaints of midsternal chest pain, across the chest and radiating to the left arm and jaw. Associated with nausea and vomiting. Patient states that he felt dizzy last night and fell twice. Patient otherwise denied any complaints of leg swelling. No diaphoresis. Does have headache. No fever no chills. No cough or sputum production. Patient was discharged from the hospital on 03/19/20, admitted with left-sided weakness possible subacute CVA and also headache. Patient had CT head and CTA of the head and neck showed no obvious etiology. MRI of the brain showed no ev idence of ischemia. Patient was seen by neurology and recommended dual antiplatelet therapy. Syphilis antibody was negative. Was started on Neurontin 200 mg 3 times daily for headache and possible occipital neuralgia. Patient has not been taking his medications at home. Laboratory data showed d-dimer 0.67. AST 39, ALT 54, alk phos 95 Troponin x2- proBNP 127 Lipase 63 EKG showed normal sinus rhythm Chest x-ray showed no acute cardiopulmonary process CT angiogram of the chest showed no evidence of pulmonary embolus. No evidence of thoracic aortic aneurysm. No acute pulmonary process. Review of Systems Constitutional: Patient denies any fever or chills . No generalized weakness or weight loss. Abdomen: Patient denied nausea vomiting and diarrhea and abdominal pain. Cardiovascular: Patient complains of chest pain radiating to the back and jaw and left arm. Complains of shortness of breath. No palpitations. No leg swelling.. Respiratory: patient denied any cough is from production. No shortness of breath Neurologic: Patient denied any numbness or tingling headache. Musculoskeletal: Patient denies any complaints of joint swelling or deformity. Skin: Negative Psychiatric: Negative Endocrine: No heat or cold intolerance. No recent weight gain. Genitourinary: No dysuria or hematuria. All other 14 point ROS negative except the above Past Medical History Past Medical History: Atrial Fibrillation, Coronary Artery Disease (CAD), COPD, Hyperlipidemia, Hypertension, Myocardial Infarction (NM) Additional Past Medical History / Comment(s): Pt recently admitted to [facility] on 03/15/20 with headache, L sided weakness/possible CVA/diabetes. Other hx: Pt states he had a NM approximately 1.5 yrs ago while in the state of [place]/ tented, murmur, chronic cervical pain, "blockages in vessels in back of my head"-states he needs surgery, recent vertigo/falls and L leg "gives out.". Last Myocardial Infarction Date:: 2017 History of Any Multi-Drug Resistant Organisms: None Reported Past Surgical History: Appendectomy, Heart Catheterization With Stent, Ton sillectomy Past Anesthesia/Blood Transfusion Reactions: No Reported Reaction Date of Last Stent Placement:: 2017 Smoking Status: Current every day smoker - Past Family History Father Family Medical History: No Reported History Additional Family Medical History / Comment(s): Father in a train crash in his 40s or 50s. Mother Family Medical History: No Reported History Additional Family Medical History / Comment(s): Mother in a train crash in her 40s or 50s. Medications and Allergies Home Medications Medication Instructions Recorded Confirmed Type Aspirin 81 mg PO DAILY chew 03/19/20 03/21/20 Rx Atorvastatin [Lipitor] 40 mg PO DAILY #30 tab 03/19/20 03/21/20 Rx Clopidogrel [Plavix] 75 mg PO DAILY #30 tab 03/19/20 03/21/20 Rx Gabapentin [Neurontin] 200 mg PO TID #6 cap 03/19/20 03/21/20 Rx Metoprolol Tartrate [Lopressor] 12.5 mg PO BID #30 tab 03/19/20 03/21/20 Rx Pantoprazole [Protonix] 40 mg PO AC-BRKFST #30 tablet. 03/19/20 03/21/20 Rx lisinopriL [Zestril] 5 mg PO DAILY #30 tab 03/19/20 03/21/20 Rx Acetaminophen-Codeine 300-30mg 2 tab PO Q4HR PRN 03/21/20 03/21/20 History [Tylenol w/codeine #3] Butalb/APAP/Caff 50-325-40Mg 1 tab PO Q6HR PRN 03/21/20 03/21/20 History [Fioricet 50-325-40] Allergies Allergy/AdvReac Type Severity Reaction Status Date / Time Penicillins Allergy Anaphylaxis Verified 03/21/20 09:10 Physical Exam Vitals: Vital Signs Temp Pulse Resp BP Pulse Ox 03/21/20 13:30 57 L 114/64 96 03/21/20 13:00 69 115/52 98 03/21/20 12:30 51 L 131/83 97 03/21/20 12:00 61 16 123/70 98 03/21/20 11:30 63 14 134/71 98 03/21/20 11:00 54 L 139/72 98 03/21/20 10:30 57 L 153/77 99 03/21/20 10:28 57 L 18 153/77 100 03/21/20 10:00 58 L 133/74 96 03/21/20 09:30 63 154/88 96 03/21/20 09:00 72 16 162/85 98 03/21/20 08:56 72 23 97 03/21/20 08:38 97.7 F 87 18 151/75 99 Intake and Output 03/21/20 03/21/20 03/21/20 06:59 14:59 22:59 Other: Weight 79.379 kg PHYSICAL EXAMINATION: Patient is lying in the bed comfortably, no acute distress, awake alert and oriented.. HEENT: Normocephalic. Neck is supple. Pupils reactive. Nostrils clear. Oral c avity is moist. Ears reveal no drainage. Neck reveals no JVD, carotid bruits, or thyromegaly. CHEST EXAMINATION: Trachea is central. Symmetrical expansion. Lung chamorro clear to auscultation and percussion. CARDIAC: Normal S1, S2 with no gallops. No murmurs ABDOMEN: Soft. Bowel sounds normal. No organomegaly. No abdominal bruits. Extremities: reveal no edema. No clubbing or cyanosis Neurologically awake, alert, oriented x3 with well-coordinated movements. No focal deficits noted Skin: No rash or skin lesions. Psychiatric: Coperative. Nonsuicidal Musculoskeletal: No joint swelling or deformity. Normal range of motion. Results CBC & Chem 7: 03/21/20 09:06 03/21/20 09:06 Labs: Abnormal Lab Results - Last 24 Hours (Table) 03/21/20 03/21/20 Range/Units 09:06 09:06 D-Dimer 0.67 H (<0.60) mg/L FEU ALT 54 H (4-49) U/L Creatine Kinase 47 L (55-170) U/L Thrombosis Risk Factor Assmnt - Choose All That Apply Any of the Below Risk Factors Present?: Yes Each Factor Represents 1 point: Abnormal pulmonary function (COPD), Obesity (BMI >25) Other Risk Factors: Yes Each Risk Factor Represents 2 Points: Age 61-74 years Other congenital or acquired thrombophilia - If yes, enter type in comment: No Thrombosis Risk Factor Assessment Total Risk Factor Score: 4 Thrombosis Risk Factor Assessment Level: Moderate Risk Assessment and Plan Assessment: Chest pain rule out ACS. Recent admission with possible CVA with left-sided weakness. MRI of the head was negative.. Cephalgia/occipital neuralgia Coronary artery disease history of stent placement 1/2-year ago Hyperlipidemia with LDL 133 Hypertension Sinus bradycardia with heart rate 57 Currently everyday smoker History of NM COPD Noncompliant with medications. DVT prophylaxis with heparin subcu Plan: Patient will be continued on aspirin, Plavix and statins. Will start on heparin drip. His serial EKG and troponin x2-. Continue with Neurontin for headache/occipital neuralgia. Continue with the pain management and follow-up closely. Cardiology was consulted. Time with Patient: Greater than 30
[2020-03-22] MEDS: NITROGLYCERIN OINT 1 INCH/GM PACKET TOPICAL SCH (06:12)
[2020-03-22 06:35] LABS: Cholesterol 152 mg/dL (<200); HDL Cholesterol 33 mg/dL (40-60); LDL Cholesterol,Calculated 90 mg/dL (0-99); Triglycerides 143 mg/dL (<150)
[2020-03-22] MEDS ORDERED: PANTOPRAZOLE 40 MG TABLET PO SCH (07:30)
[2020-03-22] MEDS ORDERED: DOBUTamine DRIP for NUC MED 500 MG in DEXTROSE/WATER 1 250ML.BAG IV ONE (08:32)
[2020-03-22] MEDS ORDERED: lisinopriL 5 MG TAB PO SCH (09:00)
[2020-03-22] MEDS ORDERED: CLOPIDOGREL 75 MG TAB PO SCH (09:00)
[2020-03-22] MEDS ORDERED: ATORVASTATIN 40 MG TAB PO SCH (09:00)
[2020-03-22] MEDS ORDERED: ASPIRIN 81 MG PO SCH (09:00)
[2020-03-22] MEDS ORDERED: ASPIRIN 325 MG TAB PO SCH (09:00)
[2020-03-22 10:19] VITALS: BP 153/69; PULSE 55; RESP 16; TEMP 98
--- NOTE | 2020-03-22 10:19 | P.CRDCN ---
History of Present Illness History of present illness: HISTORY OF PRESENTING ILLNESS This is a pleasant 65-year-old male past medical history significant for artery disease status post PCI while living in [facility] approximately one and a half years ago, dyslipidemia, hypertension, chronic nicotine dependence and COPD. 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 He is currently [facility]. He states his dual citizenship [place] and has lost his wallet recently [place] We have been asked to see in consultation for chest pain. He is complaining of a tightness in the chest and dizziness. He states he feels lightheaded like he is going to pass out. His chest pain is not related to exertion or activity. He has no associated shortness of breath, palpitations, nausea, vomiting or diaphoresis. He was just here last week and underwent a full work-up by neurology and was cleared to go home. CT angiography revealed moderate to severe plaque in the bilateral carotid bulbs level with no hemodynamically significant stenosis. The patient's medication list includes aspirin 81 mg daily, atorvastatin 40 mg daily, Plavix 75 mg daily, Lopressor 12.5 mg twice a day and lisinopril 5 mg daily. However the patient states he has no access to receiving his medications as he is homeless. He is not currently taking any daily medications. DIAGNOSTICS EKG reveals sinus mechanism with incomplete right bundle branch block. Chest xray negative for an acute cardiopulmonary process. CTA of the chest is negative for pulmonary embolism, no aortic abnormality and no other acute cardiopulmonary process noted Laboratory reviewed, CBC unremarkable, d-dimer 0.67, sodium 140, potassium 4.8, creatinine 0.91, magnesium 1.8, cardiac enzymes negative 3, and he proBNP 127, LDL 90 and HDL 33. REVIEW OF SYSTEMS At the time of my exam: CONSTITUTIONAL: Denies fever or chills. CARDIOVASCULAR: Denies chest pain, shortness of breath, orthopnea, PND or palpitations. RESPIRATORY: Denies cough. GASTROINTESTINAL: Denies abdominal pain, diarrhea, constipation, nausea or vomiting. MUSCULOSKELETAL: Denies myalgias. NEUROLOGIC: Denies numbness, tingling or weakness. ENDOCRINE: Denies fatigue, weight change, polydipsia or polyurina. GENITOURINARY: Denies burning, hematuria or urgency with micturation. HEMATOLOGIC: Denies history of anemia or bleeding. PHYSICAL EXAMINATION Blood pressure 142/68 heart rate 59 afebrile and maintaining oxygen saturation on room air. CONSTITUTIONAL: No apparent distress. HEENT: Head is normocephalic. Pupils are equal, round. Sclerae anicteric. Mucous membranes of the mouth are moist. No JVD. No carotid bruit. CHEST EXAMINATION: Lungs are clear to auscultation. No chest wall tenderness is noted on palpation or with deep breathing. HEART EXAMINATION: Regular rate and rhythm. S1, S2 heard. No murmurs, gallops or rub. ABDOMEN: Soft, nontender. Positive bowel sounds. EXTREMITIES: 2+ peripheral pulses, no lower extremity edema and no calf tenderness. NEUROLOGIC EXAMINATION: Patient is awake, alert and oriented x3. ASSESSMENT Chest pain, atypical. An acute coronary event has been ruled out. Dizziness Nonsustained ventricular tachycardia, 13 beat run at 0130 Hypertension Dyslipidemia Coronary artery disease status post PCI approximately early 2018 according to the patient. Exact details are unavailable. COPD Chronic nicotine dependence Homelessness and inability to maintain daily medications. PLAN An acute coronary event has been ruled out. Obtain 2D echocardiogram and doppler study to assess cardiac structure and function. Continue aspirin 81 mg daily and atorvastatin 40 mg daily. Increase lopressor to 25 mg BID. Perform dobutmaine stress echo to assess for stress induced ischemia. Recommend smoking cessation. Thank you kindly for this consultation. Nurse Practitioner note has been reviewed, I agree with a documented findings and plan of care. Patient was seen and examined. Past Medical History Past Medical History: Atrial Fibrillation, Coronary Artery Disease (CAD), COPD, Hyperlipidemia, Hypertension, Myocardial Infarction (DC) Additional Past Medical History / Comment(s): Pt recently admitted to [facility] on 03/15/20 with headache, L sided weakness/possible CVA/diabetes. Other hx: Pt states he had a DC approximately 1.5 yrs ago while in the [facility]/stented, murmur, chronic cervical pain, "blockages in vessels in back of my head"-states he needs surgery, recent vertigo/falls and L leg "gives out.". Last Myocardial Infarction Date:: 2017 History of Any Multi-Drug Resistant Organisms: None Reported Past Surgical History: Appendectomy, Heart Catheterization With Stent, Tonsillectomy Past Anesthesia/Blood Transfusion Reactions: No Reported Reaction Date of Last Stent Placement:: 2017 Smoking Status: Current every day smoker - Past Family History Father Family Medical History: No Reported History Additional Family Medical History / Comment(s): Father in a train crash in his 40s or 50s. Mother Family Medical History: No Reported History Additional Family Medical History / Comment(s): Mother in a train crash in her 40s or 50s. Medications and Allergies Home Medications Medication Instructions Recorded Confirmed Type Aspirin 81 mg PO DAILY chew 03/19/20 03/21/20 Rx Atorvastatin [Lipitor] 40 mg PO DAILY #30 tab 03/19/20 03/21/20 Rx Clopidogrel [Plavix] 75 mg PO DAILY #30 tab 03/19/20 03/21/20 Rx Gabapentin [Neurontin] 200 mg PO TID #6 cap 03/19/20 03/21/20 Rx Metoprolol Tartrate [Lopressor] 12.5 mg PO BID #30 tab 03/19/20 03/21/20 Rx Pantoprazole [Protonix] 40 mg PO AC-BRKFST #30 tablet. 03/19/20 03/21/20 Rx lisinopriL [Zestril] 5 mg PO DAILY #30 tab 03/19/20 03/21/20 Rx Acetaminophen-Codeine 300-30mg 2 tab PO Q4HR PRN 03/21/20 03/21/20 History [Tylenol w/codeine #3] Butalb/APAP/Caff 50-325-40Mg 1 tab PO Q6HR PRN 03/21/20 03/21/20 History [Fioricet 50-325-40] Allergies Allergy/AdvReac Type Severity Reaction Status Date / Time Penicillins Allergy Anaphylaxis Verified 03/21/20 09:10 Physical Exam Vitals: Vital Signs Temp Pulse Pulse Resp BP BP Pulse Ox 03/22/20 05:30 98.1 F 59 L 19 142/68 99 03/22/20 01:50 52 L 114/46 97 03/21/20 21:01 98.1 F 54 L 20 134/63 97 03/21/20 15:00 97.9 F 57 L 18 115/54 96 03/21/20 13:30 57 L 114/64 96 03/21/20 13:00 69 115/52 98 03/21/20 12:30 51 L 131/83 97 03/21/20 12:00 61 16 123/70 98 03/21/20 11:30 63 14 134/71 98 03/21/20 11:00 54 L 139/72 98 03/21/20 10:30 57 L 153/77 99 03/21/20 10:28 57 L 18 153/77 100 03/21/20 10:00 58 L 133/74 96 Intake and Output 03/21/20 03/22/20 03/22/20 22:59 06:59 14:59 Other: Voiding Method Toilet Toilet # Voids 1 Results 03/21/20 09:06 03/21/20 09:06 Cardiac Enzymes 03/21/20 03/21/20 03/21/20 Range/Units 09:06 09:06 12:59 AST 39 (17-59) U/L Troponin I <0.012 <0.012 (0.000-0.034) ng/mL 03/21/20 Range/Units 16:23 AST (17-59) U/L Troponin I <0.012 (0.000-0.034) ng/mL Coagulation 03/21/20 03/21/20 03/22/20 Range/Units 09:06 18:48 06:02 PT 10.0 (9.0-12.0) sec APTT 26.2 60.9 H 46.3 H (22.0-30.0) sec Lipids 03/22/20 Range/Units 06:02 Triglycerides 143 (<150) mg/dL Cholesterol 152 (<200) mg/dL HDL Cholesterol 33 L (40-60) mg/dL Comprehensive Metabolic Panel 03/21/20 Range/Units 09:06 Sodium 140 (137-145) mmol/L Potassium 4.8 (3.5-5.1) mmol/L Chloride 106 (98-107) mmol/L Carbon Dioxide 27 (22-30) mmol/L BUN 16 (9-20) mg/dL Creatinine 0.91 (0.66-1.25) mg/dL Glucose 98 (74-99) mg/dL Calcium 9.7 (8.4-10.2) mg/dL AST 39 (17-59) U/L ALT 54 H (4-49) U/L Alkaline Phosphatase 95 (38-126) U/L Total Protein 7.5 (6.3-8.2) g/dL Albumin 4.6 (3.5-5.0) g/dL Current Medications Generic Name Dose Route Start Last Admin Trade Name Freq PRN Reason Stop Dose Admin Acetaminophen/Butalbital/Caffeine 1 each 03/21/20 12:22 03/21/20 20:48 Fioricet 50-325-40 PO 1 each Q6HR PRN Administration Headache Aspirin 81 mg 03/22/20 09:00 03/22/20 08:55 Aspirin PO 81 mg DAILY CATRACHITA Administration Atorvastatin Calcium 40 mg 03/22/20 09:00 03/22/20 08:55 Lipitor PO 40 mg DAILY CATRACHITA Administration Gabapentin 200 mg 03/21/20 16:00 03/21/20 21:25 Neurontin PO 200 mg TID CATRACHITA Administration Sodium Chloride 1,000 mls @ 20 mls/hr 03/21/20 12:30 03/21/20 12:42 Saline 0.9% IV 20 mls/hr .Q24H CATRACHITA Administration Dobutamine HCl/Dextrose 500 mg 250 mls @ 23.814 mls/hr 03/22/20 08:32 / IV Solution IV 03/22/20 19:01 .[id number] ONE Protocol 10 MCG/KG/MIN Lisinopril 5 mg 03/22/20 09:00 03/22/20 08:55 Zestril PO 5 mg DAILY CATRACHITA Administration Metoprolol Tartrate 12.5 mg 03/21/20 21:00 03/21/20 21:27 Lopressor PO Not Given BID CATRACHITA Nitroglycerin 0.4 mg 03/21/20 12:20 Nitrostat SUBLINGUAL Q5M PRN Chest Pain Pantoprazole Sodium 40 mg 03/22/20 07:30 03/22/20 06:45 Protonix PO 40 mg AC-BRKFST CATRACHITA Administration Intake and Output 03/21/20 03/22/20 03/22/20 22:59 06:59 14:59 Other: Voiding Method Toilet Toilet # Voids 1 03/21/20 09:06 03/21/20 09:06
[2020-03-22] MEDS: METOPROLOL TARTRATE 12.5 MG TAB PO SCH (10:32)
[2020-03-22] MEDS: GABAPENTIN 100 MG CAP PO SCH (10:32)
[2020-03-22] MEDS: SODIUM CHLORIDE 0.9% 1,000 ML IV SCH (11:29)
== END 2020-03-22 11:45 | disposition left against medical advice (07) ==
LOC: EC 08:36 → 3NCARDOBS 12:20
PROVIDERS: ADMIT Internal Medicine; ATTEND Internal Medicine
DX: R07.89 Other chest pain (principal); R11.2 Nausea with vomiting, unspecified; R42 Dizziness and giddiness; R51 Headache; R61 Generalized hyperhidrosis; I25.10 Atherosclerotic heart disease of native coronary artery without angina pectoris; Z95.5 Presence of coronary angioplasty implant and graft; J44.9 Chronic obstructive pulmonary disease, unspecified; I10 Essential (primary) hypertension; E78.5 Hyperlipidemia, unspecified; I25.2 Old myocardial infarction; I69.354 Hemiplegia and hemiparesis following cerebral infarction affecting left non-dominant side; F17.200 Nicotine dependence, unspecified, uncomplicated; Z91.14 Patient's other noncompliance with medication regimen; T50.906A Underdosing of unspecified drugs, medicaments and biological substances, initial encounter; R00.1 Bradycardia, unspecified; M54.81 Occipital neuralgia; I47.2 Ventricular tachycardia; F32.9 Major depressive disorder, single episode, unspecified; I45.10 Unspecified right bundle-branch block; I48.91 Unspecified atrial fibrillation; G89.29 Other chronic pain; M54.2 Cervicalgia; Z90.49 Acquired absence of other specified parts of digestive tract; Z79.82 Long term (current) use of aspirin; Z79.899 Other long term (current) drug therapy; Z79.02 Long term (current) use of antithrombotics/antiplatelets; Z79.891 Long term (current) use of opiate analgesic; Z88.0 Allergy status to penicillin; E66.9 Obesity, unspecified; Z68.26 Body mass index [BMI] 26.0-26.9, adult; Z59.0 Homelessness; Z20.828 Contact with and (suspected) exposure to other viral communicable diseases
CPT/HCPCS: 93005 ×2; 96366 ×3; 96376; 96361; 96365; 99285; 36415; 85379; 83880; 80061; 80053; 82550; 83690; 83735; 84484; 85025; 85610; 85730 ×2; 71046; 71275; G0378 ×2; U0003; J1250; J1644 ×2; Q9967